=== PATIENT | male | born 1945 | race Caucasian/White ===

== ENCOUNTER 2016-10-21 21:41 | Emergency (ER) | payer MEDICARE ==
--- NOTE | 2016-10-22 01:09 | ED ---
Lower Extremity - HPI Summary HPI Summary: Patient arrives to ED with concern of DVT. He states he has been traveling more frequently lately and yesterday forgot to wear his compression stockings. Pain is located behind the left calf and left knee. He denies trauma or injury. He had a spontaneous PE many years ago and DVT after long driving trip 3 years ago and now is on coumadin. Denies other significant health history. - History of Current Complaint Chief Complaint: EDExtremityLower Stated Complaint: PAIN LT LEG Time Seen by Provider: 10/21/16 23:47 Hx Obtained From: Patient Onset of Pain: Days Severity Initially: Moderate Severity Currently: Moderate Pain Intensity: 5 Pain Scale Used: 0-10 Numeric Timing: Constant Location: Is Discrete @ - left leg calf and posterior knee Associated Signs And Symptoms: Positive: Knee Pain Aggravating Factor(s): Standing, Ambulation Alleviating Factor(s): Rest Able to Bear Weight: Yes - Allergies/Home Medications Allergies/Adverse Reactions: Allergies Allergy/AdvReac Type Severity Reaction Status Date / Time Levofloxacin [From Levaquin] Allergy Intermediate Itching Verified 03/23/16 10: 34 Metronidazole [From Flagyl] Allergy Intermediate Itching Verified 03/23/16 10:34 Sulfa Drugs Allergy Unknown See Comment Verified 03/23/16 10:34 PMH/Surg Hx/FS Hx/Imm Hx Previously Healthy: Yes Endocrine/Hematology History: Reports: Hx Anticoagulant Therapy Denies: Hx Diabetes, Hx Thyroid Disease Cardiovascular History: Reports: Hx Coronary Artery Disease, Hx Deep Vein Thrombosis, Hx Embolism - DVT/PE 1980, SARCOIDOSIS, Hx Pacemaker/ICD - [facility] , HX OF SICK SINUS SYNDROME 1994, Other Cardiovascular Problems/Disorders - HX OF DVT LEFT LEG PROGRESSED TO RIGHT LUNG PE Denies: Hx Congestive Heart Failure, Hx Hypertension Respiratory History: Reports: Hx Pulmonary Embolism - 1980, Hx Sleep Apnea - BIPAP user, compliance issues, Other Respiratory Problems/Disorders - HX OF PE IN 1980 Denies: Hx Asthma, Hx Chronic Obstructive Pulmonary Disease (COPD) GI History: Reports: Hx Gastroesophageal Reflux Disease, Other GI Disorders - hx (right) inguinal hernia History: Reports: Other Problems/Disorders - hx TURP Denies: Hx Renal Disease Musculoskeletal History: Reports: Hx Arthritis - BILATERAL KNEES, THUMB AND SHOULDER, Hx Back Problems, Hx Bursitis, Hx Tendonitis, Other Musculoskeletal History - knee repair Sensory History: Reports: Hx Contacts or Glasses, Hx Glaucoma Denies: Hx Hearing Aid Opthamlomology History: Reports: Hx Contacts or Glasses, Hx Glaucoma Neurological History: Denies: Hx Dementia, Hx Seizures Psychiatric History: Reports: Hx Anxiety - RELATED TO FINANCES AND UNEMPLOYMENT , Hx Depression Denies: Hx Substance Abuse - Surgical History Surgery Procedure, Year, and Place: 1946 ENLARGING OF HOLE AT END OF PENIS, [place], [place]. 8 TONSILLECTOMY, [place], [place]. 1954 BILATERAL INGUINAL HERNIA REPAIR, [place], [place]. 1965 APPENDECTOMY, [facility], (DEVELOPED PERITONITIS). 1980 LAMINECTOMY L4-L5, [facility] (DEVELOPED PULMONARY EMBOLISM). 1992 LEFT KNEE ARTHROSCOPIC MENISCUS SURGERY, [facility]. 1994 RIGHT KNEE ARTHROSCOPIC MENISCUS SURGERY, [facility] ( DEVELOPED AVASCULAR ;NECROSIS). 1994 MOSAICPLASTY RIGHT KNEE, [place], [place]. 1994 PACEMAKER INSERTION, [facility]. 1998 LAMINECTOMY L4-L5, [place], [place]. 2006 PACEMAKER GENERATOR CHANGE, [facility]. 2009 TURP, [facility] [place]. 2013 RIGHT INGUINAL HERNIA REPAIR, [facility] [place]. 2016 ENDOSCOPY AND COLONOSCOPY, [facility] [place]. RIGHT KNEE REPLACEMENT 12/22/15 Hx Anesthesia Reactions: No - Immunization History Date of Tetanus Vaccine: Unk Date of Influenza Vaccine: Fall 2014 Infectious Disease History: No Infectious Disease History: Denies: Hx Hepatitis, Hx Human Immunodeficiency Virus (HIV), Hx of Known/ Suspected MRSA, Hx Tuberculosis, History Other Infectious Disease, Traveled Outside the in Last 30 Days - Family History Known Family History: Positive: Hypertension - Social History Occupation: Retired Lives: With Family Alcohol Use: Occasionally Alcohol Amount: WINE Hx Substance Use: No Substance Use Type: Reports: None Hx Tobacco Use: Yes Smoking Status (MU): Former Smoker Type: Cigarettes Amount Used/How Often: 1 PACK EVERY OTHER DAY OR LESS Length of Time of Smoking/Using Tobacco: 8 YEARS Have You Smoked in the Last Year: No Review of Systems Constitutional: Negative ENT: Negative Cardiovascular: Negative Respiratory: Negative Positive: no symptoms reported, see HPI Positive: Myalgia Skin: Negative Neurological: Negative Psychological: Normal All Other Systems Reviewed And Are Negative: Yes Physical Exam Triage Information Reviewed: Yes Vital Signs On Initial Exam: Initial Vitals Temp Pulse Resp BP Pulse Ox 97.4 F 64 18 154/72 99 03/31/17 21:47 10/21/16 21:47 10/21/16 21:47 10/21/16 21:47 10/21/16 21:47 Completion Of Physical Exam Limited Due To: Dementia Appearance: Positive: Well-Appearing, Well-Nourished Skin: Positive: Warm, Skin Color Reflects Adequate Perfusion Head/Face: Positive: Normal Head/Face Inspection Neck: Positive: Supple, No Lymphadenopathy Respiratory/Lung Sounds: Positive: Clear to Auscultation, Breath Sounds Present Cardiovascular: Positive: Normal, RRR, Pulses are Symmetrical in both Upper and Lower Extremities Musculoskeletal: Positive: Pain @ - left posterior calf Neurological: Positive: Normal, Sensory/Motor Intact, Speech Normal Psychiatric: Positive: Normal AVPU Assessment: Alert - Luca Coma Scale Coma Scale Total: 15 Diagnostics - Vital Signs Vital Signs Temp Pulse Resp BP Pulse Ox 10/21/16 21:47 97.4 F 64 18 154/72 99 - Laboratory Lab Statement: Any lab studies that have been ordered have been reviewed, and results considered in the medical decision making process. Lower Extremity Course/Dx - Course Course Of Treatment: Patient sent to US. Negative for DVT. Patient encouraged to use moist heat behind knee and calf for comfort. Patient agrees to follow up. - Diagnoses Differential Diagnosis/HQI/PQRI: Positive: Cellulitis, Contusion, DVT, Sprain, Strain Provider Diagnoses: Muscle cramp Discharge - Discharge Plan Condition: Stable Disposition: HOME Patient Education Materials: Leg Cramps (ED) Referrals: Denver Murrell MD [Primary Care Provider] - Additional Instructions: Follow up with PCP. Moist heat to the area. If its not too painful, walk to prevent stiffness At rest, elevated it with some moist heat then walk If symptoms become worse or your pain is not well controlled, come back to ED
[2016-10-22 01:26] VITALS: BP 135/90
--- NOTE | 2016-10-22 07:38 | RAD ---
INDICATION: Left calf pain. COMPARISON: There are no prior studies available for comparison. TECHNIQUE: Multiple real-time, color flow and Doppler tracings of the left lower extremity were obtained. FINDINGS: The common femoral, femoral, profunda femoral and popliteal veins all demonstrate normal compressibility, augmentation with compression and phasic response with respiration. The posterior tibial and peroneal veins demonstrate normal compressibility and augmentation with compression. IMPRESSION: NO EVIDENCE FOR DEEP VENOUS THROMBOSIS.
== END 2016-10-22 01:25 | disposition home or self-care (01) ==
LOC: ED 21:41
DX: R25.2 Cramp and spasm (principal); M79.1 Myalgia; Z87.891 Personal history of nicotine dependence
CPT/HCPCS: 99282

== ENCOUNTER 2016-11-19 18:03 | Emergency (ER) | payer MEDICARE ==
[2016-11-19 18:28] VITALS: BP 142/79
--- NOTE | 2016-11-19 19:21 | UC ---
Skin Complaint HPI - HPI Summary HPI Summary: The patient comes in today for: 1. Left groin rash, scrotal itching, inquinal region itching/irritation: Onset: 3-5 days. Palliative/provocative: Taking a shower makes it better. Monistat seemed to help. Quality: Itching ("a fair amount") Region: Left inquinal region. Severity: 09/30 Time: Constant. Associated symptoms: Previous treatment: Monistat Skin lesion: he has a growing ulcer of the left lower anterior leg. * - History of Current Complaint Chief Complaint: UCRash Time Seen by Provider: 11/19/16 19:15 Stated Complaint: RASH Hx Obtained From: Patient - Allergy/Home Medications Allergies/Adverse Reactions: Allergies Allergy/AdvReac Type Severity Reaction Status Date / Time Levofloxacin [From Levaquin] Allergy Intermediate Itching Verified 11/19/16 18: 28 Metronidazole [From Flagyl] Allergy Intermediate Itching Verified 11/19/16 18:28 Sulfa Drugs Allergy Unknown See Comment Verified 11/19/16 18:28 Review of Systems Constitutional: Negative Skin: Rash Eyes: Negative ENT: Negative Respiratory: Negative Cardiovascular: Negative Gastrointestinal: Negative Genitourinary: Negative Psychological: Anxious All Other Systems Reviewed And Are Negative: Yes PMH/Surg Hx/FS Hx/Imm Hx Previously Healthy: No - Sleep apnea, glaucoma. Endocrine History Of: Reports: Dyslipidemia Denies: Diabetes, Thyroid Disease, Hyperthyroidism, Hypothyroidism Cardiovascular History Of: Reports: Cardiac Disorders - pacemaker since 1994. He states that he has a "blockage" in the heart., Pacemaker/ICD - [facility], HX OF SICK SINUS SYNDROME 1994, Deep Vein Thrombosis - [facility] 1980 after back surgery DVT 2012 from prolonged driving. Denies: Hypertension, Congestive Heart Failure Respiratory History Of: Reports: Pulmonary Embolism - 1980 Denies: COPD, Asthma, Bronchitis, Pneumonia GI/ History Of: Reports: Gastroesophageal Reflux Denies: Ulcer, Gastrointestinal Bleed, Gall Bladder Disease, Kidney Stones, Diverticulitis, Renal Disease, Urosepsis Neurological History Of: Denies: TIA, CVA, Dementia, Seizures, Migraine Psychological History Of: Reports: Anxiety - RELATED TO FINANCES AND UNEMPLOYMENT, Depression Denies: Bipolar Disorder, Schizophrenia, Post Traumatic Stress Disorder Cancer History Of: Denies: Lung Cancer, Colorectal Cancer, Breast Cancer, Prostate Cancer, Cervical Cancer Other History Of: Anticoagulant Therapy Negative For: HIV, Hepatitis B, Hepatitis C - Surgical History Surgical History: Yes Surgery Procedure, Year, and Place: 1946 ENLARGING OF HOLE AT END OF PENIS, [facility], [place]. 8 TONSILLECTOMY, [place], [place]. 1954 BILATERAL INGUINAL HERNIA REPAIR, [place], [place]. 1965 APPENDECTOMY, [facility], (DEVELOPED PERITONITIS). 1980 LAMINECTOMY L4-L5, [facility] (DEVELOPED PULMONARY EMBOLISM). 1992 LEFT KNEE ARTHROSCOPIC MENISCUS SURGERY, [facility]. 1994 RIGHT KNEE ARTHROSCOPIC MENISCUS SURGERY, [facility] ( DEVELOPED AVASCULAR ;NECROSIS). 1994 MOSAICPLASTY RIGHT KNEE, [place], [place]. 1994 PACEMAKER INSERTION, [facility]. 1998 LAMINECTOMY L4-L5, [place], [place]. 2006 PACEMAKER GENERATOR CHANGE, [facility]. 2009 [place]URP, [facility] [place] [facility] [place]. 2013 RIGHT INGUINAL HERNIA REPAIR, [facility] [place]. 2015 ENDOSCOPY AND COLONOSCOPY, [facility] [place]. RIGHT KNEE REPLACEMENT 12/22/15 - Family History Known Family History: Positive: Hypertension Negative: Cardiac Disease, Diabetes - Social History Occupation: Employed Full-time Alcohol Use: Occasionally Alcohol Amount: WINE Substance Use Type: None Smoking Status (MU): Former Smoker Type: Cigarettes Amount Used/How Often: 1 PACK EVERY OTHER DAY OR LESS Length of Time of Smoking/Using Tobacco: 8 YEARS Have You Smoked in the Last Year: No - Immunization History Most Recent Influenza Vaccination: 2014 Most Recent Tetanus Shot: LESS THAN 10 YEARS Most Recent Pneumonia Vaccination: NONE Physical Exam Triage Information Reviewed: Yes Appearance: Well-Appearing, No Pain Distress, Well-Nourished Vital Signs: Initial Vital Signs Temp 98.0 F 11/19/16 18:19 Pulse 60 11/19/16 18:19 Resp 20 11/19/16 18:19 BP 142/79 11/19/16 18:19 Pulse Ox 97 11/19/16 18:19 Vital Signs Reviewed: Yes Eyes: Positive: Conjunctiva Clear. Negative: Discharge ENT: Positive: Hearing grossly normal. Negative: Pharyngeal erythema, Nasal congestion, Nasal drainage, TM bulging, TM dull, TM red, Tonsillar swelling, Tonsillar exudate Dental: Negative: Gross Decay/Caries @, Dental Fracture @ Neck: Positive: Supple, Nontender, No Lymphadenopathy. Negative: Nuchal Rigidity Respiratory: Positive: Lungs clear, No respiratory distress, No accessory muscle use. Negative: Crackles, Wheezing Cardiovascular: Positive: RRR, No Murmur Abdomen Description: Positive: Nontender, No Organomegaly, Soft. Negative: Distended, Guarding Musculoskeletal: Positive: Strength Intact, ROM Intact, No Edema Neurological: Positive: Alert, Muscle Tone Normal Psychological: Positive: Age Appropriate Behavior, Consolable Skin: Positive: rashes - He has an erythematous rash of the left upper inner thigh. There is some scale present--but no central clearing. There are a few satellite lesions. His scrotal skin has mild edema. Course/Dx - Differential Diagnoses - Skin Complaint Differential Diagnoses: Eczema, Impetigo, Tinea - Diagnoses Provider Diagnoses: High blood pressure: Tinea cruis Discharge - Discharge Plan Condition: Stable Disposition: HOME Patient Education Materials: Adonis Dunbar (ED) Referrals: Denver Murrell MD [Primary Care Provider] - 1 Week (Please see your primary care provider in a week to see how well you are doing. If you get worse, please be seen sooner in the ER or through us.) Additional Instructions: Apply the desonide ointment as needed for itching. Use the ketoconazole cream twice a day for a solid two weeks. See your primary care provider in a week to see how you are doing with your rash and for your blood pressure.
== END 2016-11-19 19:52 | disposition home or self-care (01) ==
LOC: UCEAST 18:03
DX: B35.6 Tinea cruris (principal); R03.0 Elevated blood-pressure reading, without diagnosis of hypertension; E78.5 Hyperlipidemia, unspecified; Z95.0 Presence of cardiac pacemaker; Z86.711 Personal history of pulmonary embolism; Z79.01 Long term (current) use of anticoagulants; K21.9 Gastro-esophageal reflux disease without esophagitis; F41.9 Anxiety disorder, unspecified; Z96.651 Presence of right artificial knee joint; Z87.891 Personal history of nicotine dependence
CPT/HCPCS: 99212; G0463

== ENCOUNTER 2019-07-18 17:05 | Emergency (ER) | payer MEDICARE ==
--- OUTSIDE RECORDS SUMMARY | 2019-07-18 17:10 | XMS REPORT | Continuity of Care Document ---
:1945 External Reference #:[id number] Author Name Afshan Jade Care Team Providers Name Role Phone Denver Murrell III, MD - Internal Care Team Information Advisor To [employer] In [employer] Medicine Derek Tompkins MD - Gastroenterology Care Team Information Advisor To [employer] In [employer] Huang Renae MD - Hematology Care Team Information Advisor To [employer] In [employer] [phone] Jung Beck MD - Urology Care Team Information Advisor To [employer] In [employer] [phone] [facility] [place] Sleep [facility] - Sleep Disorder Care Team Information Advisor To [employer] In [employer] Diagnostic Problems Active Problems Provider Date Eruption Denver Murrell M.D. Onset: 05/31/2011 Indigestion Denver Murrell M.D. Onset: 06/14/2011 Sarcoidosis Denver Murrell M.D. Onset: 08/15/2011 Mixed hyperlipidemia Denver Murrell M.D. Onset: 08/15/2011 Malaise and fatigue Denver Murrell M.D. Onset: 08/15/2011 Low back pain Denver Murrell M.D. Onset: 10/26/2011 Impaired fasting glycaemia Denver Murrell M.D. Onset: 11/23/2011 Arthralgia of the lower leg Denver Murrell M.D. Onset: 01/02/2012 Anxiety state Denver Murrell M.D. Onset: 09/13/2012 Embolism from thrombosis of vein of Denver Murrell M.D. Onset: 12/03/2012 distal lower extremity Sinus node dysfunction Aditya Park M.D., [facility], Onset: 10/09/2013 [facility] Chest pain Aditya Park M.D., [facility], Onset: 06/25/2014 [facility] Obstructive sleep apnea of adult Pippa Gimenez DNP, RN, Onset: 10/22/2013 [facility] History of thromboembolism of vein Denver Murrell M.D. Onset: 09/09/2015 Gastroesophageal reflux disease Denver Murrell M.D. Onset: 09/09/2015 Benign prostatic hypertrophy without Denver Murrell M.D. 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., [facility], Onset: 2015 [place] coronary artery without angina [facility] pectoris Thoracic aortic ectasia Aditya Park M.D., [facility], Onset: 02/06/2018 [facility] Social History Type Date Description Comments Sex Unknown Cigarette Use Quit 35 Years Ago 2 ppd; began age 17 ETOH Use Occasionally consumes alcohol Tobacco Use Start: Unknown End: Patient is a former Unknown smoker Smoking Status Reviewed: 07/01/19 Patient is a former smoker Exercise Exercises sporadically Type/Frequency Allergies, Adverse Reactions, Alerts Active Allergies Reaction Severity Comments Date Sulfa 2009 Flagyl urticaria, scratchy throat 2009 Levaquin scratchy throat, tingling of 2009 hands, abd. cramps Metoprolol dizzines, headache, fatigue 01/29/2016 Cephalexin hand "tingling" 06/25/2019 Medications Active Medications SIG Qnty Indications Ordering Date Provider Amoxicillin take 4 tabs 1 16caps Z96.651 Christophe Gonzalez M.D. 07/06/2016 500mg hour prior to Capsules dental work Atenolol 1 by mouth every 30tabs Adityagirish Reyes 01/19/2016 25mg Tablets guillermo Park M.D., ELIZABETH, ABBY Aspir-81 1 by mouth every I25.10 Adityagirish Reyes 12/16/[address] guillermo Park M.D., ELIZABETH, ABBY Lipitor 1 by mouth at 90tabs I25.10 Adityagirish Reyes 12/16/2015 40mg Tablets bedtime Jaz Park, ELIZABETH, ABBY Coumadin take 1 and 1/2 120tabs Denver El 11/12/2012 5mg Tablets tablet by mouth Jaz Murrell on 5 days per week and take 2 tablets by mouth on the other 2 days per week.-as directed Acetaminophen 2 po prn 60caps Unknown 500mg Capsules Lansoprazole 1 by mouth daily Unknown 15mg as needed Capsules Hydrocortisone Acetate prn Unknown 1% Cream Mau Zurita, 0.05% Ointment Betaxolol HCL Unknown 0.5% Solution Brimonidine Tartrate Unknown 0.15% Solution Medications Administered in Office Medication SIG Qnty Indications Ordering Provider Date Depomedrol 40MG Bertha Shell M.D. 08/16/2017 Injection Depomedrol 40MG Bertha Shell M.D. 08/16/2017 Injection Depomedrol 40MG Bertha Shell M.D. 08/16/2017 Injection Depomedrol 40MG Bertha Shell M.D. 08/16/2017 Injection Depomedrol 40MG Bertha Shell M.D. 12/05/2016 Injection Depomedrol 40MG Bertha Shell M.D. 12/05/2016 Injection Depomedrol 40MG Bertha Shell M.D. 12/05/2016 Injection Depomedrol 40MG Bertha Shell M.D. 12/05/2016 Injection Inj, Regadenoson, 0.1 MG Aditya Park M.D., 10/17/2016 Injection FACC, FASNC Technetium TC 99M Aditya Park M.D., 10/17/2016 Tetrofosmin, Per Unit Dose FACC, FASNC Up To 40 Millicuries Injection Inj, Regadenoson, 0.1 MG Aditya Park M.D., 12/14/2015 Injection FACC, FASNC Technetium TC 99M Aditya Park M.D., 12/14/2015 Tetrofosmin, Per Unit Dose FACC, FASNC Up To 40 Millicuries Injection Depomedrol 80MG LEATHA Payne 05/22/2015 Injection Inj, Regadenoson, 0.1 MG Hakan Atkins M.D. 06/09/2014 Injection Inj, Regadenoson, 0.1 MG Liss Avalos M.D. 06/09/2014 Injection Technetium TC 99M Hakan Atkins M.D. 06/09/2014 Tetrofosmin, Per Unit Dose Up To 40 Millicuries Injection Technetium TC 99M Ica Nuclear Schedule 06/05/2014 Tetrofosmin, Per Unit Dose Up To 40 Millicuries Injection Depomedrol 80MG Christophe Gonzalez M.D. 02/20/2013 Injection Immunizations CPT Code Status Date Vaccine Reaction Lot # [id number] Given 06/25/2019 Influenza Virus Vaccine, No immediate [id number] Quadrivalent ([id number]), reaction..jh Derived From Cell 01250 Given 05/19/2017 Influenza Virus Vaccine, Pt. tolerated well/No [id number] Quadrivalent, Split, reaction noted. Preservative Free 25882 Given 07/28/2016 Pneumococcal Conjugate [id number] Vaccine 13 Valent For Intramuscular Use 49609 Given 07/12/2016 Influ Virus Vaccine, [id number] Quadrivalent, Split Virus, [place] [address] Given 07/13/2015 Influenza Virus Vaccine, [id number] Quadrivalent, Split, Preservative Free 49831 Given 06/13/2014 Flu Vaccine Split Virus [id number] Preservative Free For Indiv 3Yr Older 19751 Given 05/22/2013 Flu Vaccine Split Virus [id number] Preservative Free For Indiv 3Yr Older Q2037 Given 08/03/2012 Fluvirin Im 3Yrs And Older [id number] 66237 Given 12/06/2011 Pneumonia Vaccine [id number] 99333 Given 12/06/2011 Tdap - [id number] Tetanus/Diptheria/Acellular Pertussis 76345 Given 05/10/2010 Influenza Virus 3Yrs & Over Vital Signs Date Vital Result Comment 07/01/2019 1:27pm Height 71.25 inches 5'11.25" Weight 234.00 lb Heart Rate 66 /min BP Systolic 118 mmHg BP Diastolic 70 mmHg Respiratory Rate 16 /min Body Temperature 97.3 F Pain Level 3 BMI (Body Mass Index) 32.4 kg/m2 06/25/2019 9:24am Height 71 inches 5'11" Weight 237.00 lb Heart Rate 62 /min BP Systolic Sitting 130 mmHg BP Diastolic Sitting 73 mmHg BMI (Body Mass Index) 33.1 kg/m2 Results Test Acquired Date Facility Test Result H/L Range Note Protime W/ Inr 07/02/2019 [facility] [employer] [facility] House Prothrombin Time 25.5 Inr 2.1 Protime W/ Inr 06/25/2019 [employer] In House Prothrombin Time 37.4 Inr 3.1 Procedures Date Code Description Status 06/27/2019 24483 Pace Maker Eval W/Iterative Adjment Dual Lead Completed 06/27/2019 44014 Pace Maker Eval W/Iterative Adjment Dual Lead Completed 08/10/2015 95697943 Colonoscopy Completed 07/05/2010 66318417 Colonoscopy Completed Medical Devices Description No Information Available Encounters Type Date Location Provider Dx Diagnosis Office Visit 06/25/2019 [employer] Internal Denver Murrell, I49.5 Sick sinus 9:00a Medicine - [facility] Jaz syndrome E78.2 Mixed hyperlipidemia N40.0 Benign prostatic hyperplasia without lower urinry tract symp G47.33 Obstructive sleep apnea (adult) (pediatric) Z86.718 Personal history of other venous thrombosis and embolism Z79.01 group home (current) use of anticoagulants Z95.0 Presence of cardiac pacemaker Z23 Encounter for immunization Assessments Date Code Description Provider 07/02/2019 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 left knee 06/27/2019 I49.5 Sick sinus syndrome Ica Pacer Schedule 06/27/2019 Z95.0 Presence of cardiac pacemaker Aditya Park M.D., [facility] 06/27/2019 Z95.0 Presence of cardiac pacemaker Ica Pacer Schedule 06/25/2019 I49.5 Sick sinus syndrome Denver Murrell M.D. 06/25/2019 E78.2 Mixed hyperlipidemia Denver Murrell M.D. 06/25/2019 N40.0 Benign prostatic hyperplasia without Denver Murrell M.D. lower urinary tract symptoms 06/25/2019 G47.33 Obstructive sleep apnea (adult) Denver Murrell M.D. (pediatric) 06/25/2019 Z86.718 Personal history of other venous Denver Murrell M.D. 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 anticoagulants 06/25/2019 Z95.0 Presence of cardiac pacemaker Denver Murrell M.D. 06/25/2019 Z23 Encounter for immunization Denver Murrell M.D. Plan of Treatment Future Appointment(s):09/03/2019 7:30 am - Christophe Gonzalez M.D. at [facility] at [id number]/23/2019 11:00 am - Graciela Dejesus MD at [facility]07/12/2019 10:00 am - Denver Murrell M.D. at [facility] [place] - Christophe Gonzalez M.D.M17.12 Unilateral primary osteoarthritis, left knee Functional Status Description No Information Available Mental Status Description No Information Available Referrals Refer to Dr Reason for Referral Status Appt Date Jung Beck MD Previous pt now back in the area; (+) BPH, past Sent TURP [address] [place] [address] [place] [address] [phone] [facility] [place] [facility] Previous pt, now back in the area. (+) sleep apnea; Sent on CPAP [address] JAMAL [place] [phone]
--- OUTSIDE RECORDS SUMMARY | 2019-07-18 17:10 | XMS REPORT | Continuity of Care Document ---
:1945 External Reference #:[id number] Author Name Denver Murrell M.D. (transmitted by agent of provider Rupali Sheldon) Address [address], [place] [address] Care Team Providers Name Role Phone Denver Murrell III, MD - Internal Care Team Information Marketing Information Manager [phone] Medicine Derek Tompkins MD - Gastroenterology Care Team Information Marketing Information Manager [phone] Huang Renae MD - Hematology Care Team Information Marketing Information Manager Jung Beck MD - Urology Care Team Information Marketing Information Manager [phone] [facility] - Sleep Disorder Care Team Information Marketing Information Manager Diagnostic Ye Joyner MD - Dermatology Care Team Information Marketing Information Manager [phone] Humble Spear MD - Surgery Care Team Information Marketing Information Manager Problems Active Problems Provider Date Eruption Denver [...] extremity Sinus node dysfunction Aditya Park M.D., [facility], Onset: 10/09/2013 [facility] Chest pain Aditya Park M.D., [facility], Onset: 06/25/2014 [facility] Obstructive sleep apnea of adult Pippa ROGER Giemnez, RN, Onset: 10/22/2013 [facility]- History of thromboembolism of vein Denver Murrell M.D. Onset: 09/09/2015 Gastroesophageal reflux disease Denver Murrell M.D. Onset: 09/09/2015 Benign prostatic hypertrophy without Denver Murrell M.D. 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 [facility] pectoris Thoracic aortic ectasia Aditya Park M.D., [facility], Onset: 02/06/2018 [facility] Social History Type Date Description Comments Sex Unknown Cigarette Use Quit 35 Years Ago 2 ppd; began age 17 ETOH Use Occasionally consumes alcohol Tobacco Use Start: Unknown End: Patient is a former Unknown smoker Smoking Status Reviewed: 07/12/19 Patient is a former smoker Exercise Exercises [...] work Atenolol 1 by mouth every 30tabs Aditya Reyes 01/19/2016 25mg Tablets day Jaz Park, ABBY JOHNSON Aspir-81 1 by mouth every I25.10 Aditya Reyes 12/16/[address] guillermo Park M.D., [facility] [place] Lipitor 1 by mouth at 90tabs I25.10 Aditya Reyes 12/16/2015 40mg Tablets bedtime Jaz Park, ABBY JOHNSON Coumadin take 1 and 1/2 120tabs Denver E. 11/12/2012 5mg Tablets tablet by mouth Jaz [...] Depomedrol 40MG Bertha Shell M.D. 08/16/2017 Injection Saulomedrol 40MG Bertha Shell M.D. 12/05/2016 Injection Depomedrol 40MG Bertha Shell M.D. 12/05/2016 Injection Depomedrol 40MG Bertha Shell M.D. 12/05/2016 Injection Depomedrol 40MG Bertha Shell M.D. 12/05/2016 Injection Inj, Regadenoson, 0.1 MG Aditya Park M.D., 10/17/2016 Injection ABBY JOHNSON Technetium TC 99M Aditya Park M.D., 10/17/2016 Tetrofosmin, Per Unit Dose ABBY JOHNSON Up To 40 Millicuries Injection Inj, Regadenoson, 0.1 MG Aditya Park M.D., 12/14/2015 Injection FACC, FASNC Technetium TC 99M Aditya Park M.D., 12/14/2015 Tetrofosmin, Per Unit Dose FACC, FASNC Up To 40 Millicuries Injection Depomedrol 80MG Mindy Mcneil RPA-C 05/22/2015 Injection Inj, Regadenoson, 0.1 MG Hakan [...] Code Status Date Vaccine Reaction Lot # [id number] Given 06/25/2019 Influenza Virus Vaccine, No immediate [id number] Quadrivalent (Cciiv4), reaction..jh Derived From Cell 72461 Given 05/19/2017 Influenza Virus Vaccine, Pt. tolerated well/No [id number] Quadrivalent, Split, reaction noted. Preservative Free 78771 Given 07/28/2016 Pneumococcal Conjugate [id number] Vaccine 13 Valent For Intramuscular Use 49359 Given 07/12/2016 Influ Virus Vaccine, [id number] Quadrivalent, Split Virus, [place] [address] Given 07/13/2015 Influenza Virus Vaccine, [id number] Quadrivalent, Split, Preservative Free 14139 Given 06/13/2014 Flu Vaccine Split Virus [id number] Preservative Free For Indiv 3Yr Older 24430 Given 05/22/2013 Flu Vaccine Split Virus [id number] Preservative Free For Indiv 3Yr Older Q2037 Given 08/03/2012 Fluvirin Im 3Yrs And Older [id number] 32872 Given 12/06/2011 Pneumonia Vaccine [id number] 86634 Given 12/06/2011 Tdap - [id number] Tetanus/Diptheria/Acellular Pertussis 28177 Given 05/10/2010 Influenza Virus 3Yrs & Over Vital Signs Date Vital Result Comment 07/12/2019 10:08am Height 71.25 inches 5'11.25" Weight 233.00 lb Heart Rate 61 /min BP Systolic Sitting 118 mmHg BP Diastolic Sitting 70 mmHg BMI (Body Mass Index) 32.3 kg/m2 07/01/2019 1:27pm Height 71.25 inches 5'11.25" Weight 234.00 lb Heart Rate 66 /min BP Systolic 118 mmHg BP Diastolic 70 mmHg Respiratory Rate 16 /min Body Temperature 97.3 F Pain Level 3 BMI (Body Mass Index) 32.4 kg/m2 Results Test Acquired Date Facility Test Result H/L Range Note Protime W/ Inr 07/12/2019 [facility] Prothrombin Time 19.2 Inr 1.6 Protime W/ Inr 07/02/2019 [facility] Prothrombin Time 25.5 Inr 2.1 Protime W/ Inr 06/25/2019 [facility] Prothrombin Time 37.4 Inr 3.1 Procedures Date Code Description Status 06/27/2019 96193 Pace Maker Eval W/Iterative Adjment Dual Lead Completed 06/27/2019 59937 Pace Maker Eval W/Iterative Adjment Dual Lead Completed 08/10/2015 49808412 Colonoscopy Completed 07/05/2010 [id number] Colonoscopy Completed Medical Devices Description No Information Available Encounters Type Date Location Provider Dx Diagnosis Office Visit 06/25/2019 [facility] Internal Denver Murrell, I49.5 Sick sinus 9:00a Medicine - Ccmob Jaz syndrome E78.2 Mixed hyperlipidemia N40.0 Benign prostatic hyperplasia without lower urinry tract symp G47.33 Obstructive sleep apnea (adult) (pediatric) Z86.718 Personal history of other venous thrombosis and embolism 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 left knee 07/12/2019 Z79.01 intermediate (current) use of Nurse Visit A anticoagulants 07/12/2019 I83.812 Varicose veins of left lower Denver Murrell M.D. extremity with pain 07/12/2019 Z86.718 Personal history of other venous Nurse Visit A thrombosis and embolism 07/12/2019 L98.9 Disorder of the skin and Denver Murrell M.D. subcutaneous tissue, unspecified 07/02/2019 Z79.01 assistant terminal manager (current) use of Nurse Visit A anticoagulants 07/02/2019 Z86.718 Personal history of other venous Nurse Visit A thrombosis and embolism 07/01/2019 M17.12 Unilateral primary osteoarthritis, Christophe Gonzalez M.D. left knee 06/27/2019 I49.5 Sick sinus syndrome Ica Pacer Schedule 06/27/2019 Z95.0 Presence of cardiac pacemaker Aditya Park M.D., [facility], [facility] 06/27/2019 Z95.0 Presence of cardiac pacemaker Ica Pacer Schedule 06/25/2019 I49.5 Sick sinus syndrome Denver Murrell M.D. 06/25/2019 E78.2 Mixed hyperlipidemia Denver Murrell M.D. 06/25/2019 N40.0 Benign prostatic hyperplasia without Denver Murrell M.D. lower urinary tract symptoms 06/25/2019 G47.33 Obstructive sleep apnea (adult) Denver Murrell M.D. (pediatric) 06/25/2019 Z86.718 Personal history of other venous Denver Murrell M.D. thrombosis and embolism 06/25/2019 Z79.01 assistant terminal manager (current) use of Denver Murrell M.D. anticoagulants 06/25/2019 Z95.0 Presence of cardiac pacemaker Denver Murrell M.D. 06/25/2019 Z23 Encounter for immunization Denver Murrell M.D. Plan of Treatment Future Appointment(s):08/21/2019 10:30 am - Christophe Gonzalez M.D. at [facility] at [place]8/16/2019 11:20 am - Denver Murrell M.D. at [facility] Internal Medicine - [facility]09/03/2019 7:30 am - Christophe Gonzalez M.D. at [facility] at [place]08/23/2019 11:00 am - Graciela Dejesus MD at [facility]07/12/2019 - Denver Murrell M.D.M17.12 Unilateral primary osteoarthritis, left kneeComments:L TKA planned in Aug per orthoFollow up:preop eval in Jul as mnjajpntpH13.812 Varicose veins of left lower extremity with painComments:Chronic varicose veins, L>R, with occ L calf aches. Vascular eval requested by pt and referral to Dr Spear enteredReferral:Humble Spear MD, Surgery,QkxylvdD57.9 Disorder of the skin and subcutaneous tissue, unspecifiedComments:Derm eval for a general skin check requested and referral enteredReferral:Ye Joyner MD, Dermatology Functional Status Description No Information Available Mental Status Description No Information Available Referrals Refer to Dr Reason for Referral Status Appt Date Ye Joyner MD General skin check Sent [address] [facility] [address] [phone] Humble Spear MD Chronic varicose veins, worse on the L Created [address] [facility] [place] [address] [phone] Jung Beck MD Previous pt now back in the area; (+) BPH, past Sent TURP [address] [facility] [place] [address] [phone] [facility] Previous pt, now back in the area. (+) sleep apnea; Sent 08/23/[address] [place] [address] [phone]
--- OUTSIDE RECORDS SUMMARY | 2019-07-18 17:10 | XMS REPORT | Continuity of Care Document ---
:1945 External Reference #:[id number] Author Name Christophe Gonzalez M.D. (transmitted by agent of provider Yasmin Son) Address [address] [facility] [facility] [place] [address] Care Team Providers Name Role Phone Denver Murrell III, MD - Internal Care Team Information Bench Assembler Medicine Derek Tompkins MD - Gastroenterology Care Team Information Bench Assembler Huang Renae MD - Hematology Care Team Information Bench Assembler Jung Beck MD - Urology Care Team Information Bench Assembler [phone] [facility] - [place] Care Team Information Bench Assembler Diagnostic Problems Active Problems Provider Date Eruption [...] extremity Sinus node dysfunction Aditya Park M.D., [facility], Onset: 10/09/2013 [facility] Chest pain Aditya Park M.D., [facility], Onset: 06/25/2014 [facility] Obstructive sleep apnea of adult Pippa EncinasROGER laird, RN, Onset: 10/22/2013 [employer]- History of thromboembolism of vein Denver Murrell M.D. Onset: 09/09/2015 Gastroesophageal reflux disease Denver Murrell M.D. Onset: 09/09/2015 Benign prostatic hypertrophy without Denver Murrell M.D. 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 Thoracic aortic ectasia Aditya Park M.D., [facility], Onset: 02/06/2018 [facility] Social History Type Date Description Comments Sex [...] every 30tabs Aditya Reyes 01/19/2016 25mg Tablets guillermo Park M.D., [facility], [facility] Aspir-81 1 by mouth every I25.10 Aditya Reyes 12/16/[address] guillermo Park M.D., [facility], [facility] Lipitor 1 by mouth at 90tabs I25.10 Adityagirish Reyes 12/16/2015 40mg Tablets bedtime Jaz Park, FACC, [facility] Coumadin take 1 and 1/2 120tabs Denver El 11/12/2012 5mg Tablets tablet by mouth Jaz Murrell on 5 days per week and take 2 tablets by mouth on the other 2 days per week.-as directed Acetaminophen 2 po prn 60caps Unknown 500mg Capsules Lansoprazole 1 by mouth daily Unknown 15mg as needed Capsules Hydrocortisone Acetate prn Unknown 1% Cream DesMau Webster, 0.05% Ointment Betaxolol HCL Unknown 0.5% Solution [...] 0.1 MG Aditya Park M.D., 10/17/2016 Injection PASCUALC, FASNC Technetium TC 99M Aditya Park M.D., [...] Code Status Date Vaccine Reaction Lot # 81493 Given 06/25/2019 Influenza Virus Vaccine, No immediate [id number] Quadrivalent (Cciiv4), reaction..jh Derived From Cell 22844 Given 05/19/2017 Influenza Virus Vaccine, Pt. tolerated well/No [id number] Quadrivalent, Split, reaction noted. Preservative Free 88256 Given 07/28/2016 Pneumococcal Conjugate [id number] Vaccine 13 Valent For Intramuscular Use 02316 Given 07/12/2016 Influ Virus Vaccine, [id number] Quadrivalent, Split Virus, [place] [address] Given 07/13/2015 Influenza Virus Vaccine, [id number] Quadrivalent, Split, Preservative Free 83226 Given 06/13/2014 Flu Vaccine Split Virus [id number] Preservative Free For Indiv 3Yr Older 31544 Given 05/22/2013 Flu Vaccine Split Virus [id number] Preservative Free For Indiv 3Yr Older Q2037 Given 08/03/2012 Fluvirin Im 3Yrs And Older [id number] 76202 Given 12/06/2011 Pneumonia Vaccine [id number] 04196 Given 12/06/2011 Tdap - [id number] Tetanus/Diptheria/Acellular Pertussis 03963 Given 05/10/2010 Influenza Virus 3Yrs & Over [...] Result H/L Range Note Protime W/ Inr 06/25/2019 [facility] Prothrombin Time 37.4 Inr 3.1 Procedures Date Code Description Status 06/27/2019 85290 Pace Maker Eval W/Iterative Adjment Dual Lead Completed 06/27/2019 85939 Pace Maker Eval W/Iterative Adjment Dual Lead Completed 08/10/2015 04963777 Colonoscopy Completed 07/05/2010 [id number] Colonoscopy Completed Medical Devices Description No Information Available Encounters Type Date Location Provider Dx Diagnosis Office Visit 06/25/2019 [facility] Internal Denver Murrell, I49.5 Sick sinus 9:00a Medicine - Ccmob Jaz syndrome E78.2 Mixed hyperlipidemia N40.0 Benign prostatic hyperplasia without lower urinry tract symp G47.33 Obstructive sleep apnea (adult) (pediatric) Z86.718 Personal history of other venous thrombosis and embolism Z79.01 retirement (current) use of anticoagulants Z95.0 Presence of cardiac pacemaker Z23 Encounter for immunization Assessments Date Code Description Provider 07/01/2019 M17.12 Unilateral primary osteoarthritis, Christophe Gonzalez M.D. left knee 06/27/2019 I49.5 Sick sinus syndrome Ica Pacer Schedule 06/27/2019 Z95.0 Presence of cardiac pacemaker Aditya Park M.D., [facility], [facility] 06/27/2019 Z95.0 Presence of cardiac pacemaker Ica Pacer Schedule 06/25/2019 I49.5 Sick sinus syndrome Denver Murrell M.D. 06/25/2019 E78.2 Mixed hyperlipidemia Denver Murrell M.D. 06/25/2019 N40.0 Benign prostatic hyperplasia without Denver Murrell M.D. lower urinary tract symptoms 06/25/2019 G47.33 Obstructive sleep apnea (adult) Denver Murrell M.D. (pediatric) 06/25/2019 Z86.718 Personal history of other venous Denver Murrell M.D. thrombosis and embolism 06/25/2019 Z79.01 retirement (current) use of Denver Murrell M.D. anticoagulants 06/25/2019 Z95.0 Presence of cardiac pacemaker Denver Murrell M.D. 06/25/2019 Z23 Encounter for immunization Denver Murrell M.D. Plan of Treatment No Information Available Functional Status Description No Information Available Mental Status Description No Information Available Referrals Refer to Dr Reason for Referral Status Appt Date Jung Beck MD Previous pt now back in the area; (+) BPH, past Sent TURP [address] [place] [address] [phone] [facility] Previous pt, now back in the area. (+) sleep apnea; Sent on CPAP [address] [place] [address] [phone]
--- OUTSIDE RECORDS SUMMARY | 2019-07-18 17:10 | XMS REPORT | Continuity of Care Document ---
:1945 External Reference #:[id number] Author Name Denver Murrell M.D. (transmitted by agent of provider Dimple Jeffries) Address [address], [place] [address] Care Team Providers Name Role Phone Denver Murrell III, MD - Internal Care Team Information Payroll Tax Specialist [phone] Medicine Derek Tompkins MD - Gastroenterology Care Team Information Payroll Tax Specialist [phone] Huang Renae MD - Hematology Care Team Information Payroll Tax Specialist Jung Beck MD - Urology Care Team Information Payroll Tax Specialist [phone] [facility] [place] [facility] Care Team Information Payroll Tax Specialist [phone] Diagnostic Problems Active Problems Provider Date Eruption [...] extremity Sinus node dysfunction Aditya Park M.D., [facility], Onset: 10/09/2013 [facility] Chest pain Aditya Park M.D., [facility], Onset: 06/25/2014 [facility] Obstructive sleep apnea of adult Pippa GimenezROGER, RN, Onset: 10/22/2013 [employer] LOAD [employer]- History of thromboembolism of vein Denver Murrell M.D. Onset: 09/09/2015 Gastroesophageal reflux disease Denver Murrell M.D. Onset: 09/09/2015 Benign prostatic hypertrophy without Denver Murrell M.D. 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 Thoracic aortic ectasia Aditya Park M.D., [facility], Onset: 02/06/2018 [facility] Social History Type Date Description Comments Sex Unknown Cigarette Use Quit 35 Years Ago 2 ppd; began age 17 ETOH Use Occasionally consumes alcohol Tobacco Use Start: Unknown End: Patient is a former Unknown smoker Smoking Status Reviewed: 06/25/19 Patient is a former smoker Exercise Exercises [...] Reyes 01/19/2016 25mg Tablets guillermo Park M.D., [facility], [facility] Aspir-81 1 by mouth every I25.10 Adityagirish Reyes 12/16/[address] guillermo Park M.D., [facility], [facility] Lipitor 1 by mouth at 90tabs I25.10 [...] Bertha Shell M.D. 12/05/2016 Injection Depomedrol 40MG Bertah Shell M.D. 12/05/2016 Injection Inj, Regadenoson, 0.1 [...] 40 Millicuries Injection Depomedrol 80MG Mindy Mcneil RPA-Sergo 05/22/2015 Injection Inj, Regadenoson, 0.1 MG Hakan [...] Code Status Date Vaccine Reaction Lot # 53448 Given 06/25/2019 Influenza Virus Vaccine, No immediate [id number] Quadrivalent (Cciiv4), reaction..jh Derived From Cell 26136 Given 05/19/2017 Influenza Virus Vaccine, Pt. tolerated well/No [id number] Quadrivalent, Split, reaction noted. Preservative Free 63621 Given 07/28/2016 Pneumococcal Conjugate [id number] Vaccine 13 Valent For Intramuscular Use 22192 Given 07/12/2016 Influ Virus Vaccine, [id number] Quadrivalent, Split Virus, [place] [address] Given 07/13/2015 Influenza Virus Vaccine, nj2s9 Quadrivalent, Split, Preservative Free 90310 Given 06/13/2014 Flu Vaccine Split Virus [id number] Preservative Free For Indiv 3Yr Older 47061 Given 05/22/2013 Flu Vaccine Split Virus [id number] Preservative Free For Indiv 3Yr Older Q2037 Given 08/03/2012 Fluvirin Im 3Yrs And Older [id number] 56694 Given 12/06/2011 Pneumonia Vaccine [id number] 77851 Given 12/06/2011 Tdap - [id number] Tetanus/Diptheria/Acellular Pertussis 95342 Given 05/10/2010 Influenza Virus 3Yrs & Over Vital Signs Date Vital Result Comment 06/25/2019 9:24am Height 71 inches 5'11" Weight 237.00 lb Heart Rate 62 /min BP Systolic Sitting 130 mmHg BP Diastolic Sitting 73 mmHg BMI (Body Mass Index) 33.1 kg/m2 02/06/2018 1:36pm Height 71 inches 5'11" Weight 242.00 lb w/ shoes Heart Rate 62 /min BP Systolic Sitting 110 mmHg Rue lg cuff BP Diastolic Sitting 70 mmHg Rue lg cuff BP Systolic Standing 116 mmHg Rue BP Diastolic Standing 74 mmHg Rue Respiratory Rate 16 /min BMI (Body Mass Index) 33.7 kg/m2 Ejection Fraction 55-60% as of 01/29/18 echo Results Test Acquired Date Facility Test Result H/L Range Note Protime W/ Inr 06/25/2019 [facility] In House Prothrombin Time 37.4 Inr 3.1 Procedures Date Code Description Status 08/10/2015 [id number] Colonoscopy Completed 07/05/2010 [id number] Colonoscopy Completed Medical Devices Description No Information Available Encounters Description No Information Available Assessments Date Code Description Provider 06/25/2019 Z86.718 Personal history of other venous thrombosis Denver Murrell M.D. and embolism 06/25/2019 Z23 Encounter for immunization Denver Murrell M.D. 06/25/2019 I49.5 Sick sinus syndrome Denver Murrell M.D. 06/25/2019 E78.2 Mixed hyperlipidemia Denver Murrell M.D. 06/25/2019 G47.33 Obstructive sleep apnea (adult) (pediatric) Denver Murrell M.D. 06/25/2019 N40.0 Benign prostatic hyperplasia without lower Denver Murrell M.D. urinary tract symptoms Plan of Treatment Future Appointment(s):06/27/2019 10:00 am - Ica Pacer Schedule at [facility]06/25/2019 - Denver Murrell M.D.Z86.718 Personal history of other venous thrombosis and embolismComments:No problems with Coumadin Rx.Z23 Encounter for immunizationComments:Flu shot today; discussed the new shingles vaccine. Other shots gmhauuaB82.5 Sick sinus syndromeComments:Pt s/p pacer generator replacement this year. Follows with vdnhghwkwoQ36.2 Mixed hyperlipidemiaComments:On Atorvastatin Rx now; recent labs ok per pt. Outside records logpgegU13.33 Obstructive sleep apnea (adult) (pediatric)Comments:On regular CPAPReferral:[facility], Sleep Disord,Diag/RnxcjaR86.0 Benign prostatic hyperplasia without lower urinary tract symptomsComments:Pt was following with urologyReferral:Jung Beck MD, Urology Functional Status Description No Information Available Mental Status Description No Information Available Referrals Refer to Reason for Referral Status Appt Date Jung Beck MD Previous pt now back in the area; (+) BPH, past Created TURP [address] [place] [address] [phone] [facility] Previous pt, now back in the area. (+) sleep Created apnea; on CPAP [address] [place] [address] [phone]
--- OUTSIDE RECORDS SUMMARY | 2019-07-18 17:10 | XMS REPORT | Continuity of Care Document ---
:1945 External Reference #:[id number] Author Name Yasmin Infante MD (transmitted by agent of provider Imani Urrutia) Address [address] [place] [address] Care Team Providers Name Role Phone Out Of Town PCP Care Team Information [employer] Unavailable Jaci Bautista, [employer] - Family Care Team Information [employer] Problems Description No Information Available Social History Type Date Description Comments Sex Unknown ETOH Use Denies alcohol use Tobacco Use Start: Unknown End: Unknown Patient is a former smoker Recreational Drug Use Denies Drug Use Smoking Status Reviewed: 04/18/19 Patient is a former smoker Allergies, Adverse Reactions, Alerts Active Allergies Reaction Severity Comments Date Metoprolol 12/21/2018 Flagyl 12/21/2018 Levaquin 12/21/2018 Sulfa Antibiotics 12/21/2018 Seasonal 12/21/2018 Cefdinir 01/05/2019 Medications Active Medications SIG Qnty Indications Ordering Date Provider Amoxicillin Take 4 capsules by 16caps J18.9 Marty Fisher, 03/12/2019 500mg mouth 1 hour prior MD Capsules to dental work maximum daily dose is 4 dose Warfarin Sodium alternates 10mg and Unknown 7.5mg Brimonidine Tartrate 1 drop in each eye Unknown twice daily Atenolol 1 every day Unknown 25mg Tablets Aspirin 81 Low Dose 1 by mouth every Unknown day 81mg Chewtabs Betaxolol HCL one drop in each Unknown 0.5% eye twice daily Solution Lipitor 1 by mouth at Unknown 40mg Tablets bedtime Prevacid 1 by mouth every Unknown 15mg day Capsules DR History Medications Zithromax Z-Todd take as directed 1takeara Uribe18.9 Marty Fisher, 03/12/2019 - 03/17/2019 250mg Tablets Cefdinir 2 every day for 7 14caps J18.9 Marty Fisher, 12/21/2018 - 300mg days 12/22/2018 Capsules Symbicort 2 puff twice a day 1units J18.9 Marty Fisher, 12/21/2018 - 12/22/2018 80-4.5mcg/Act Aerosol Proair HFA 1-2 puffs every 1units J18.9 Marty Fisher, 12/21/2018 - 4-6 hours as 03/02/2019 108(90Base) needed mcg/Act Aerosol cough/wheeze Keflex 2 cap by mouth two 28caps J90 Shai Mina, 12/21/2018 - 500mg times a day x 7 [employer] 12/22/2018 Capsules days for Bronchial infection Immunizations Description No Information Available Vital Signs Date Vital Result Comment 04/18/2019 8:18am BP Systolic 129 mmHg BP Diastolic 79 mmHg Body Temperature 96.7 F O2 % BldC Oximetry 99 % Heart Rate 61 /min Respiratory Rate 16 /min Height 71 inches 5'11" Weight 232.00 lb Weight 105.235 kg BMI (Body Mass Index) 32.4 kg/m2 03/27/2019 11:24am BP Systolic 122 mmHg BP Diastolic 78 mmHg O2 % BldC Oximetry 98 % Heart Rate 62 /min Height 71 inches 5'11" Weight 233.00 lb Weight 105.689 kg BMI (Body Mass Index) 32.5 kg/m2 Results Test Acquired Date Facility Test Result H/L Range Note Medicare PNL 04/03/2019 [facility] [id number] Thyroxine (T4) 1.09 ng/dL 0.82-1.77 [facility] [address] [facility], [address], [place] [address] S [phone] TSH 1.810 uIU/mL 0.450-4.500 CMP W/GFR [facility]/03[facility] [id number] Glucose 104 mg/dL High 65-99 [address] [place] [address] [phone] BUN 17 mg/dL 8-27 Creatinine 1.06 mg/dL 0.76-1.27 eGFR If NonAfricn Am 68 mL/min/1.73 >59 eGFR If Africn Am 79 mL/min/1.73 >59 BUN/Creatinine Ratio 16 10-24 Sodium 142 mmol/L 134-144 Potassium 4.2 mmol/L 3.5-5.2 Chloride 105 mmol/L 96-106 Carbon Dioxide, Total 23 mmol/L 20-29 Calcium 9.2 mg/dL 8.6-10.2 Protein, Total 7.0 g/dL 6.0-8.5 Albumin 4.2 g/dL 3.5-4.8 Globulin, Total 2.8 g/dL 1.5-4.5 A/G Ratio 1.5 1.2-2.2 Bilirubin, Total 0.6 mg/dL 0.0-1.2 Alkaline Phosphatase 52 IU/L 39-117 Ast (Sgot) 26 IU/L 0-40 Alt (SGPT) 23 IU/L 0-44 Lipid Panel 04/03/2019 [facility] [id number] Cholesterol, Total 128 mg/dL 100-199 [address] [place] [address] [phone] Triglycerides 116 mg/dL 0-149 HDL Cholesterol 33 mg/dL Low >39 VLDL Cholesterol Pawel 23 mg/dL 5-40 LDL Cholesterol Calc 72 mg/dL 0-99 Comment: TNP PSA Free And [facility]/03/[facility] [id number] Prostate 0.6 ng/mL 0.0-4.0 1 Total Serial [address] [place] [address] Serum [phone] PSA, Free 0.18 ng/mL N/A 2 % Free PSA 30.0 % 3 PDF . CBC/Diff Ambiguous 04/03/2019 [facility] [id number] WBC 5.6 x10E3/ uL 3.4-10.8 Default [address] [place], [place] [id number] [phone] RBC 4.70 x10E6/uL 4.14-5.80 Hemoglobin 14.9 g/dL 13.0-17.7 Hematocrit 42.2 % 37.5-51.0 MCV 90 fL 79-97 MCH 31.7 pg 26.6-33.0 MCHC 35.3 g/dL 31.5-35.7 RDW 14.9 % 12.3-15.4 Platelets 166 x10E3/uL 150-450 Neutrophils 69 % Not Estab. Lymphs 20 % Not Estab. Monocytes 8 % Not Estab. Eos 3 % Not Estab. Basos 0 % Not Estab. Immature Cells TNP Neutrophils (Absolute) 3.9 x10E3/uL 1.4-7.0 Lymphs (Absolute) 1.1 x10E3/uL 0.7-3.1 Monocytes(Absolute) 0.4 x10E3/uL 0.1-0.9 Eos (Absolute) 0.2 x10E3/uL 0.0-0.4 Baso (Absolute) 0.0 x10E3/uL 0.0-0.2 Immature Granulocytes 0 % Not Estab. Immature Grans (Abs) 0.0 x10E3/uL 0.0-0.1 NRBC TNP Hematology Comments: TNP 4 Laboratory test 04/03/2019 [facility] [id number] Raul Reilly See Comment: 5 finding [address] [place] [address] [phone] PDF [id number] SEE IMAGE Order 01/05/2019 Office Orders Wheat Honey 1 [place] <pending> (536)- - Order 12/21/2018 Office Orders Xray DVD <pending> (416)- - Order 12/21/2018 Office Orders PFT Without Bronchodilator <pending> (294)- - 1 Jovany ECLIA methodology. According to the [employer] [employer], Serum PSA should decrease and remain at undetectable levels after radical prostatectomy. The AUA defines biochemical recurrence as an initial PSA value 0.2 ng/mL or greater followed by a subsequent confirmatory PSA value 0.2 ng/mL or greater. Values obtained with different assay methods or kits cannot be used interchangeably. Results cannot be interpreted as absolute evidence of the presence or absence of malignant disease. 2 Jovany ECLIA methodology. 3 The table below lists the probability of prostate cancer for men with non-suspicious NAN results and total PSA between 4 and 10 ng/mL, by patient age (Flaquito et al, YOSVANY 1998, 279:1542). % Free PSA 50-64 yr 65-75 yr 0.00-10.00% 56% 55% 10.01-15.00% 24% 35% 15.01-20.00% 17% 23% 20.01-25.00% 10% 20% >25.00% 5% 9% Please note: Flaquito et al did not make specific recommendations regarding the use of percent free PSA for any other population of men. 4 A hand-written panel/profile was received from your office. In accordance with the [facility] Ambiguous Test Code Policy dated January 2003, we have assigned CBC with Differential/Platelet, Test Code #561355 to this request. If this is not the testing you wished to receive on this specimen, please contact the [facility] Client Inquiry/ Technical Services Department to clarify the test order. We appreciate your business. 5 A hand-written panel/profile was received from your office. In accordance with the [facility] Ambiguous Test Code Policy dated January 2003, we have completed your order by using the closest currently or formerly recognized AMA panel. We have assigned Lipid Panel, Test Code #396218 to this request. If this is not the testing you wished to receive on this specimen, please contact the [facility] Client Inquiry/Technical Services Department to clarify the test order. We appreciate your business. Procedures Date Code Description Status 01/05/2019 64329 Radiologic Exam, Chest, 2 Views Completed 12/21/2018 08761 Spirometry Completed 12/21/2018 30773 Radiologic Exam, Chest, 2 Views Completed Medical Devices Description No Information Available Encounters Type Date Location Provider Dx Diagnosis Office Visit 04/18/2019 [facility] Yasmin Infante MD E78.5 Hyperlipidemia, 8:15a Practice unspecified J18.9 Pneumonia, unspecified organism E55.9 Vitamin D deficiency, unspecified Office Visit 03/12/2019 12:15p [facility] Angela White J18.9 Pneumonia, Medical, pc PA-C unspecified organism Office Visit 01/05/2019 11:00a [facility] Marty R05 Cough Medical, rox Fisher MD Office Visit 12/21/2018 9:00a [facility] Marty J18.9 Pneumonia, Medical, rox Fisher MD unspecified organism J90 Pleural effusion, not elsewhere classified R06.2 Wheezing Assessments Date Code Description Provider 04/18/2019 E78.5 Hyperlipidemia, unspecified Yasmin Infante MD 04/18/2019 J18.9 Pneumonia, unspecified organism Yasmin Infante MD 04/18/2019 E55.9 Vitamin D deficiency, unspecified Yamsin Infante MD 03/27/2019 Z00.00 Encounter for general adult medical Jaci GBettie Bautista, [facility] examination without abnormal findings 03/27/2019 I10 Essential (primary) hypertension Jaci Gwendolyn Bautista, [facility] 03/27/2019 E78.5 Hyperlipidemia, unspecified Jaci Bautista, [facility] 03/12/2019 J18.9 Pneumonia, unspecified organism Angela White PA-C 01/05/2019 R05 Cough Marty Fisher MD 12/21/2018 J18.9 Pneumonia, unspecified organism Marty Fisher MD 12/21/2018 J90 Pleural effusion, not elsewhere classified Marty Fisher MD 12/21/2018 R06.2 Wheezing Marty Fisher MD Plan of Treatment 04/18/2019 - Yasmin Infante MDE78.5 Hyperlipidemia, lwyhewjaecgR93.9 Pneumonia, unspecified cpmqkjesG08.9 Vitamin D deficiency, unspecifiedAllComments: Functional Status Functional Condition Comment Date Status Bipap Machine Active Mental Status Description No Information Available Referrals Refer to Reason for Referral Status Appt Date Claudia Pugh Psyd Created [address] [place] [address] [phone] [facility] Created [place], [place] Rsohan Manzanares MD Created [facility] [place] [id number] [phone]
[2019-07-18 17:45] VITALS: BP 148/90
--- NOTE | 2019-07-18 17:46 | UC ---
Respiratory Complaint HPI - HPI Summary HPI Summary: Pt presents to stating he's had a cough intermittently for the last 4-5 days. Patient states initially his sputum was yellow. Patient states now the sputum is clear. Patient states he is coughing is intermittent but he has these paroxysms that make him feel short of breath. Patient states the cough sometimes wakes him up at night. Patient denies any shortness of breath. No chest pain. No nausea vomiting. No fever, chills, rash. Patient states he's had pneumonia twice in the last 18 months and wanted to make sure he does not have pneumonia now. Patient to get the flu vaccine. No sick contacts. Patient has not taken any sssp-fig-uusucby cough medication. Patient is not on any diuretics. Patient denies any leg edema. Patient is on Coumadin for remote history of PE. Patient's medications is entered in the EMR by triage was reviewed. - History of Current Complaint Chief Complaint: UCRespiratory Stated Complaint: COUGHING Time Seen by Provider: 07/18/19 17:45 Hx Obtained From: Patient Severity Initially: Mild Pain Intensity: 0 Pain Scale Used: 0-10 Numeric - Allergies/Home Medications Allergies/Adverse Reactions: Allergies Allergy/AdvReac Type Severity Reaction Status Date / Time cephalexin Allergy Tingling Verified 07/18/19 18:03 levofloxacin Allergy Itching Verified 07/18/19 18:03 metronidazole Allergy Itching Verified 07/18/19 18:03 Sulfa (Sulfonamide Allergy Unknown Verified 07/18/19 18:03 Antibiotics) Reaction Details CEDRAFIN Allergy Tingling Uncoded 07/18/19 18:03 Home Medications: Home Medications Betaxolol 0.5 %* [Betoptic 0.05%*] 1 drop BOTH EYES BID 07/18/19 [History Confirmed 07/18/19] PMH/Surg Hx/FS Hx/Imm Hx - Additional Past Medical History Additional PMH: PE s/p back surgery Previously Healthy: Yes Endocrine History: Dyslipidemia Cardiovascular History: Pacemaker/ICD Other History Of: Anticoagulant Therapy Negative For: HIV, Hepatitis B, Hepatitis C - Surgical History Surgical History: Yes Surgery Procedure, Year, and Place: 1946 ENLARGING OF HOLE AT END OF PENIS, [place], [place]. 1947 TONSILLECTOMY, [place], [place]. 1954 BILATERAL INGUINAL HERNIA REPAIR, [place], [place]. 1965 APPENDECTOMY, [facility], (DEVELOPED PERITONITIS). 1980 LAMINECTOMY L4-L5, [facility] (DEVELOPED PULMONARY EMBOLISM). 1992 LEFT KNEE ARTHROSCOPIC MENISCUS SURGERY, [facility]. 1994 RIGHT KNEE ARTHROSCOPIC MENISCUS SURGERY, [facility] ( DEVELOPED AVASCULAR ;NECROSIS). 1994 MOSAICPLASTY RIGHT KNEE, [place], [place]. 1994 PACEMAKER INSERTION, [facility]. 1998 LAMINECTOMY L4-L5, [place], [place]. 2006 PACEMAKER GENERATOR CHANGE, [facility]. 2009 [place]P, [facility]. 2013 RIGHT INGUINAL HERNIA REPAIR, [facility]. 2015 ENDOSCOPY AND COLONOSCOPY, [facility]. RIGHT KNEE REPLACEMENT 12/22/15. 2019 PACEMAKER REPLACEMENT - Family History Known Family History: Positive: Hypertension Negative: Cardiac Disease, Diabetes - Social History Occupation: Employed Part-time Alcohol Use: Occasionally Alcohol Amount: WINE Substance Use Type: None Smoking Status (MU): Former Smoker Type: Cigarettes Amount Used/How Often: 1 PACK EVERY OTHER DAY OR LESS Length of Time of Smoking/Using Tobacco: 8 YEARS Have You Smoked in the Last Year: No - Immunization History Most Recent Influenza Vaccination: 2014 Most Recent Tetanus Shot: LESS THAN 10 YEARS Most Recent Pneumonia Vaccination: NONE Review of Systems All Other Systems Reviewed And Are Negative: Yes Constitutional: Positive: Negative Skin: Positive: Negative Eyes: Positive: Negative ENT: Positive: Other - PND Respiratory: Positive: Cough Cardiovascular: Positive: Negative Gastrointestinal: Positive: Negative Physical Exam - Summary Physical Exam Summary: Vital Signs Reviewed: Yes A+Ox3, no distress Eyes: Conjunctiva Clear, IZABELLA. EOM intact and full ENT: Hearing grossly normal TM x 2 clear, turbinates boggy, + PND, mmoist, uvula midline, no exudate, no erythema Neck: Positive: Supple Respiratory: Positive: No respiratory distress, No accessory muscle use + BS throughout, few scattered end exp wheeze, no rhonci, no rales Cardiovascular: RRR nl s1, s2 no m/r CBT <2 sec abd soft + BS nt/nd no guarding, no distension Musculoskeletal Exam: MENDIOLA x 4 without difficulty Strength Intact, ROM Intact Neurological: Positive: Alert, + sensation throughout Psychological: Positive: Normal Response To genetics nurse Skin: Positive: no rash, no ecchymosis Triage Information Reviewed: Yes Vital Signs: Initial Vital Signs Temp 98.5 F 07/18/19 17:43 Pulse 73 07/18/19 17:43 Resp 18 07/18/19 17:43 BP 148/90 07/18/19 17:43 Pulse Ox 95 07/18/19 17:43 Diagnostics - Radiology No standard instances Radiology Interpretation Completed By: ED Physician - no acute infiltrate compared to 2017 - ?mild pulm edema small pleural effusion Respiratory Course/Dx - Course Course Of Treatment: Patient presents to urgent care with cough and intermittent 5 days. Patient states his sputum was yellow is now improved clear. Patient states the coughing sometimes takes his breath away. Otherwise no shortness of breath. No fevers or chills. No edema. Patient does use CPAP at night for which he does humidify exam vital signs are stable. Patient does have an intermittent cough. Patient with slight end expiratory wheezing. No rales or rhonchi. People patient speaking in complete sentences. Review chest x-ray by my read. Compared to 2017. Patient does appear to have some mild pulmonary edema with fluid in the right lower lung. No change since 2017. No pneumonia. Discussed with patient and . We'll start albuterol MDI. Recommend patient take Robitussin comparable. Coumadin. Patient declined Flonase or prednisone at this time. We'll make sure his CPAP and pedal pulse PCP. Return precautions discussed. Patient aware that this is a preliminary chest x-ray report with final report pending BP elevated - h/o same - f/u with PCP - Differential Dx/Diagnosis Provider Diagnosis: Cough Discharge ED - Sign-Out/Discharge Documenting (check all that apply): Patient Departure All imaging exams completed and their final reports reviewed: No - Discharge Plan Condition: Stable Disposition: HOME Prescriptions: Albuterol HFA INHALER* [Ventolin HFA Inhaler*] 2 puff INH Q4H PRN #1 mdi PRN Reason: wheeze Inhaler, Assist Devices [Aerochamber Mv] 1 each PO Q4HR #1 spacer Patient Education Materials: Acute Cough (ED) Referrals: Denver Murrell MD [Primary Care Provider] - Additional Instructions: - Stay well hydrated. Drink plenty of non-alcoholic, non-caffinated beverages - Use the inhaler, 2 puffs every 4 hours the next 2 days, then every 4 hours as needed - Okay to take over the counter cough medication such as Robitussin - humidify the air in your home and your CPAP - Contact your primary doctor to schedule a follow-up appointment. If your symptoms worsen - increase cough, shortness of breath, pain, fevers or any other concerns it is recommended you go to the emergency department for further evaluation and treatment As discussed, your radiograph was reviewed by the provider that treated you tonight. It will be read by a radiologist tomorrow morning. If there is a finding other than that discussed with you today, you will receive a call from a care provider. - Billing Disposition and Condition Condition: STABLE Disposition: Home
--- NOTE | 2019-07-19 11:24 | UC ---
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 IN ADDITION THERE IS A CHRONIC INFILTRATE AT THE RIGHT LUNG BASE WHICH IS UNCHANGED. NO EVIDENCE FOR ACUTE FINDING. Wet read agreeable Course/Dx - Diagnoses Provider Diagnoses: Cough Discharge ED - Sign-Out/Discharge Documenting (check all that apply): Post-Discharge Follow Up All imaging exams completed and their final reports reviewed: Yes - Discharge Plan Condition: Stable Disposition: HOME Prescriptions: Albuterol HFA INHALER* [Ventolin HFA Inhaler*] 2 puff INH Q4H PRN #1 mdi PRN Reason: wheeze Inhaler, Assist Devices [Aerochamber Mv] 1 each PO Q4HR #1 spacer Patient Education Materials: Acute Cough (ED) Referrals: Denver Murrell MD [Primary Care Provider] - Additional Instructions: - Stay well hydrated. Drink plenty of non-alcoholic, non-caffinated beverages - Use the inhaler, 2 puffs every 4 hours the next 2 days, then every 4 hours as needed - Okay to take over the counter cough medication such as Robitussin - humidify the air in your home and your CPAP - Contact your primary doctor to schedule a follow-up appointment. If your symptoms worsen - increase cough, shortness of breath, pain, fevers or any other concerns it is recommended you go to the emergency department for further evaluation and treatment As discussed, your radiograph was reviewed by the provider that treated you tonight. It will be read by a radiologist tomorrow morning. If there is a finding other than that discussed with you today, you will receive a call from a care provider. - Billing Disposition and Condition Condition: STABLE Disposition: Home
== END 2019-07-18 18:53 | disposition home or self-care (01) ==
LOC: UCEAST 17:05
DX: R05 Cough (principal); R09.82 Postnasal drip; R03.0 Elevated blood-pressure reading, without diagnosis of hypertension; Z88.1 Allergy status to other antibiotic agents; Z88.2 Allergy status to sulfonamides; Z95.0 Presence of cardiac pacemaker; Z87.891 Personal history of nicotine dependence
CPT/HCPCS: 71046; 99212; G0463

== ENCOUNTER 2019-09-03 05:38 | Inpatient (IN) | payer MEDICARE ==
[~2019-09-03 05:38] MED LIST: Buffered Lidocaine 1% SYRIN* 1 ML/SYRINGE INTRADERM ONE
--- OUTSIDE RECORDS SUMMARY | 2019-09-03 05:41 | XMS REPORT | Continuity of Care Document ---
:1945 External Reference #:[id number] Author Name Denver Murrell M.D. (transmitted by agent of provider Radha Scruggs) Address [address], [address] [place] [id number] Care Team Providers Name Role Phone Denver Murrell III, MD - Internal Care Team Information Pump Erector Helper [phone] Medicine Derek Tompkins MD - Gastroenterology Care Team Information Pump Erector Helper Huang Renae MD - Hematology Care Team Information Pump Erector Helper Jung Beck MD - Urology Care Team Information Pump Erector Helper [phone] [facility] - Sleep Disorder Care Team Information Pump Erector Helper [phone] Diagnostic Ye Joyner MD - Dermatology Care Team Information Pump Erector Helper Humble Spear MD - Surgery Care Team Information Pump Erector Helper [phone] Problems Active Problems Provider Date Eruption Denver [...] extremity Sinus node dysfunction Aditya Park M.D., [facility], Onset: 10/09/2013 [facility] Chest pain Aditya Park M.D., [facility], Onset: 06/25/2014 [facility] Obstructive sleep apnea of adult Pippa Gimenez DNP, RN, Onset: 10/22/2013 [facility]- History of thromboembolism of vein Denver Murrell M.D. Onset: 09/09/2015 Gastroesophageal reflux disease Denver Murrell M.D. Onset: 09/09/2015 Benign prostatic hypertrophy without Denver Murrell M.D. 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 Thoracic aortic ectasia Aditya Park M.D., [facility], Onset: 02/06/2018 [facility] Social History Type Date Description Comments Sex Unknown Cigarette Use Quit 35 Years Ago 2 ppd; began age 17 ETOH Use Occasionally consumes alcohol Tobacco Use Start: Unknown End: Patient is a former Unknown smoker Smoking Status Reviewed: 08/16/19 Patient is a former smoker Exercise Exercises sporadically Type/Frequency Allergies, Adverse Reactions, Alerts Active Allergies Reaction Severity Comments Date Sulfa 2009 Flagyl urticaria, scratchy throat 2009 Levaquin scratchy throat, tingling of 2009 hands, abd. cramps Metoprolol dizzines, headache, fatigue 01/29/2016 Cephalexin hand "tingling" 06/25/2019 Medications Active Medications SIG Qnty Indications Ordering Date Provider Atenolol take one tablet 90tabs Aditya Reyes 08/02/2019 25mg Tablets per day Jaz Park, [facility], [facility] Amoxicillin take 4 tabs 1 16caps Z96.651 Christophe Gonzalez M.D. 07/06/2016 500mg hour prior to Capsules dental work Aspir-81 1 by mouth every I25.10 Aditya [...] Capsules Hydrocortisone Acetate prn Unknown 1% Cream Desonide as needed Mau Patel, 0.05% Ointment Betaxolol HCL 1 gtt OU ( Both Unknown 0.5% eyes) twice Solution daily Brimonidine Tartrate 1 gtt OU ( both Unknown eyes) twice 0.15% Solution daily Lamisil AT [employer] Unknown Foot 1% Cream Medications Administered in Office Medication SIG Qnty Indications Ordering Provider Date Depomedrol 40MG Bertha Armas M.D. 08/16/2017 Injection Saulomedrol 40MG Bertha Armas M.D. 08/16/2017 Injection Kanwalrol 40MG Bertha Armas M.D. 08/16/2017 Injection Depomedrol 40MG Bertha Armas M.D. 08/16/2017 Injection Saulomedrol 40MG Bertha Armas M.D. 12/05/2016 Injection Saulomedrol 40MG Bertha Armas M.D. 12/05/2016 Injection Saulomedrol 40MG Bertha Armas M.D. 12/05/2016 Injection Saulomedrol KEITH Armas M.D. 12/05/2016 Injection Inj, Regadenoson, 0.1 MG [...] Code Status Date Vaccine Reaction Lot # [id number] Given 06/25/2019 Influenza Virus Vaccine, No immediate [id number] Quadrivalent ([id number]), reaction..jh Derived From Cell 43776 Given 05/19/2017 Influenza Virus Vaccine, Pt. tolerated well/No [id number] Quadrivalent, Split, reaction noted. Preservative Free 82561 Given 07/28/2016 Pneumococcal Conjugate [id number] Vaccine 13 Valent For Intramuscular Use 06561 Given 07/12/2016 Influ Virus Vaccine, [id number] Quadrivalent, Split Virus, [place] [address] Given 07/13/2015 Influenza Virus Vaccine, [id number] Quadrivalent, Split, Preservative Free 13982 Given 06/13/2014 Flu Vaccine Split Virus [id number] Preservative Free For Indiv 3Yr Older 75277 Given 05/22/2013 Flu Vaccine Split Virus [id number] Preservative Free For Indiv 3Yr Older Q2037 Given 08/03/2012 Fluvirin Im 3Yrs And Older [id number] 75503 Given 12/06/2011 Pneumonia Vaccine [id number] 19766 Given 12/06/2011 Tdap - [id number] Tetanus/Diptheria/Acellular Pertussis 41478 Given 05/10/2010 Influenza Virus 3Yrs & Over Vital Signs Date Vital Result Comment 08/16/2019 11:52am Height 71.25 inches 5'11.25" Weight 230.38 lb Heart Rate 60 /min BP Systolic 114 mmHg BP Diastolic 71 mmHg Body Temperature 97.7 F O2 % BldC Oximetry 96 % BMI (Body Mass Index) 31.9 kg/m2 08/09/2019 10:44am Height 71.25 inches 5'11.25" Weight 228.00 lb Heart Rate 60 /min BP Systolic Sitting 120 mmHg Ra< reg BP Diastolic Sitting 68 mmHg Ra< reg BP Systolic Standing 128 mmHg Ra, reg BP Diastolic Standing 68 mmHg Ra, reg BMI (Body Mass Index) 31.6 kg/m2 Ejection Fraction >55% 03/21/19 echo Results Test Acquired Date Facility Test Result H/L Range Note Protime W/ Inr 08/15/2019 [employer] In House Prothrombin Time 32.9 Inr 2.7 Protime W/ Inr 08/01/2019 [employer] In House Prothrombin Time 24.8 Inr 2.1 Protime W/ Inr 07/22/2019 [employer] In House Prothrombin Time 19.7 Inr 1.6 Protime W/ Inr 07/12/2019 [employer] In House Prothrombin Time 19.2 Inr 1.6 Protime W/ Inr 07/02/2019 [employer] In House Prothrombin Time 25.5 Inr 2.1 Protime W/ Inr 06/25/2019 [employer] In House Prothrombin Time 37.4 Inr 3.1 Procedures Date Code Description Status 08/09/2019 83704 EKG Tracing & Interpretation Completed 07/26/2019 44777 Pace Maker Eval W/Iterative Adjment Dual Lead Completed 07/26/2019 59224 Pace Maker Eval W/Iterative Adjment Dual Lead Completed 06/27/2019 09029 Pace Maker Eval W/Iterative Adjment Dual Lead Completed 06/27/2019 96203 Pace Maker Eval W/Iterative Adjment Dual Lead Completed 08/10/2015 44028565 Colonoscopy Completed 07/05/2010 [id number] Colonoscopy Completed Medical Devices Description No Information Available Encounters Type Date Location Provider Dx Diagnosis Office Visit 08/09/2019 [facility] Aditya Reyes Z01.810 Encounter for 10:45a Of Candice Park M.D., preprocedural [facility] cardiovascular examination M17.12 Unilateral primary osteoarthritis, left knee I77.810 Thoracic aortic ectasia I25.10 Athscl heart disease of [place] coronary artery w/o ang pctrs I45.10 Unspecified right bundle-branch block 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 10:00a [facility] Internal Denver El M17.12 Unilateral primary Krupa Murrell M.D. osteoarthritis, [facility] left knee I83.812 Varicose veins of left lower extremity with pain L98.9 Disorder of the skin and subcutaneous tissue, unspecified Office Visit 07/01/2019 Lita Gonzalez, M17.12 Unilateral primary 1:30p [facility] osteoarthritis, left [place] knee Office Visit 06/25/2019 [facility] Willian El I49.5 Sick sinus syndrome 9:00a Krupa Murrell M.D. E78.2 Mixed hyperlipidemia N40.0 Benign prostatic hyperplasia without lower urinry tract symp G47.33 Obstructive sleep apnea (adult) (pediatric) Z86.718 Personal history of other venous thrombosis and embolism Z79.01 [facility] (current) use of anticoagulants Z95.0 Presence of cardiac pacemaker Z23 Encounter for immunization Assessments Date Code Description Provider 08/16/2019 Z01.810 Encounter for preprocedural Denver Murrell M.D. cardiovascular examination 08/16/2019 M17.12 Unilateral primary osteoarthritisDenver M.D. 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 08/16/2019 Z86.718 Personal history of other venous Denver Murrell M.D. thrombosis and embolism 08/16/2019 E78.2 Mixed hyperlipidemia Denver Murrell M.D. 08/16/2019 N40.0 Benign prostatic hyperplasia without Denver Murrell M.D. lower urinary tract symptoms 08/16/2019 G47.33 Obstructive sleep apnea (adult) Denver Murrell M.D. (pediatric) 08/16/2019 K21.9 Gastro-esophageal reflux disease Denver Murrell M.D. 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 extremity with pain 07/12/2019 Z86.718 Personal history of other venous Nurse Visit A thrombosis and embolism 07/12/2019 L98.9 Disorder of the skin and subcutaneous Denver Murrell M.D. tissue, unspecified 07/02/2019 Z79.01 [facility] (current) use of Nurse Visit A anticoagulants 07/02/2019 Z86.718 Personal history of other venous Nurse Visit A thrombosis and embolism 07/01/2019 M17.12 Unilateral primary osteoarthritis, Christophe Gonzalez M.D. left knee 06/27/2019 I49.5 Sick sinus syndrome Ica Pacer Schedule 06/27/2019 Z95.0 Presence of cardiac pacemaker Aditya Park M.D., [facility], [facility] 06/27/2019 Z95.0 Presence of cardiac pacemaker Ica Pacer Schedule 06/25/2019 I49.5 Sick sinus syndrome Denver Murrell M.D. 06/25/2019 E78.2 Mixed hyperlipidemia Denver Murrell M.D. 06/25/2019 N40.0 Benign prostatic hyperplasia without Denver Murrell M.D. lower urinary tract symptoms 06/25/2019 G47.33 Obstructive sleep apnea (adult) Denver Murrell M.D. (pediatric) 06/25/2019 Z86.718 Personal history of other venous Denver Murrell M.D. 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 anticoagulants 06/25/2019 Z95.0 Presence of cardiac pacemaker Denver Murrell M.D. 06/25/2019 Z23 Encounter for immunization Denver Murrell M.D. Plan of Treatment Future Appointment(s):10/08/2019 2:00 pm - Keanu Dalton MD at [facility] Ziehuufojas44/29/2020 10:30 am - Christophe Gonzalez M.D. at [facility] at [id number]/03/2019 7:30 am - Christophe Gonzalez M.D. at [facility] at [id number] 11:00 am - Graciela Dejesus MD at [facility] - [place] Murrell M.D.Z01.810 Encounter for preprocedural cardiovascular avhwisfjtgoM58.12 Unilateral primary osteoarthritis, left kneeI25.10 Atherosclerotic heart disease of [place] coronary artery without angina fxopealmR12.5 Sick sinus enpirxydA47.718 Personal history of other venous thrombosis and bpcnygguX95.2 Mixed vlgsccolxstgizV01.0 Benign prostatic hyperplasia without lower urinary tract nhjgoabfJ02.33 Obstructive sleep apnea ( adult) (pediatric)K21.9 Gastro-esophageal reflux disease without esophagitis Functional Status Description No Information Available Mental Status Description No Information Available Referrals Refer to Dr Reason for Referral Status Appt Date Stephanie Hanley MD General skin check Sent 10/08/2019 [address], [place] [id number] [phone] Humble Spear MD Chronic varicose veins, worse on the L Sent [address] [facility] [place] [address] [phone] Jung Beck MD Previous pt now back in the area; (+) BPH, past Sent [facility] [address] [place] [address] [place] [address] [phone] [facility] Previous pt, now back in the area. (+) sleep apnea; Sent 08/23/2019 on CPAP [address] [place] [address] [phone]
--- OUTSIDE RECORDS SUMMARY | 2019-09-03 05:41 | XMS REPORT | Continuity of Care Document ---
:1945 External Reference #:[id number] Author Name Sulema Eng Care Team Providers Name Role Phone Denver Murrell III, MD - Internal Care Team Information Animal Cytologist [phone] Medicine Derek Tompkins MD - Gastroenterology Care Team Information Animal Cytologist Huang Renae MD - Hematology Care Team Information Animal Cytologist Jung Beck MD - Urology Care Team Information Animal Cytologist [phone] [facility] - [facility] Care Team Information Animal Cytologist [phone] Diagnostic Ye Joyner MD - Dermatology Care Team Information Animal Cytologist Humble Spear MD - Surgery Care Team Information Animal Cytologist Problems Active Problems Provider Date Eruption Denver [...] extremity Sinus node dysfunction Aditya Park M.D., [facility], Onset: 10/09/2013 [facility] Chest pain Aditya Park M.D., [facility], Onset: 06/25/2014 [facility] Obstructive sleep apnea of adult Pippa ROGER Gimenez, RN, Onset: 10/22/2013 [facility] History of thromboembolism of vein Denver Murrell M.D. Onset: 09/09/2015 Gastroesophageal reflux disease Denver Murrell M.D. Onset: 09/09/2015 Benign prostatic hypertrophy without Denver Murrell M.D. 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, Onset: 02/06/2018 [facility] Social History Type Date Description Comments Sex Unknown Cigarette Use Quit 35 Years Ago 1 ppd; began age 17 ETOH Use Occasionally consumes alcohol Tobacco Use Start: Unknown End: Patient is a former Unknown smoker Recreational Drug Use Denies Drug Use Smoking Status Reviewed: 08/23/19 Patient is a former smoker Exercise Type/Frequency Exercises sporadically Allergies, Adverse Reactions, Alerts Active Allergies Reaction Severity Comments Date Sulfa 2009 Flagyl urticaria, scratchy throat 2009 Levaquin scratchy throat, tingling of 2009 hands, abd. cramps Metoprolol dizzines, headache, fatigue 01/29/2016 Cephalexin hand "tingling" 06/25/2019 Cefdinir 08/23/2019 Medications Active Medications SIG Qnty Indications Ordering Date Provider Atenolol take one tablet 90tabs Aditya Reyes 08/02/2019 25mg Tablets per day Jaz Park, [facility], [facility] Amoxicillin take 4 tabs 1 16caps Z96.651 Christophe Gonzalez M.D. 07/06/2016 500mg hour prior to Capsules dental work Aspir-81 1 by mouth every I25.10 Aditya Reyes 12/16/[address] guillermo Park M.D., [facility] Lipitor 1 by mouth at 30tabs I25.10 Aditya Reyes 12/16/2015 40mg Tablets bedtime [...] Unknown 1% Cream Desonide as needed Mau Patel 0.05% Ointment Betaxolol HCL 1 gtt OU ( Both Unknown 0.5% eyes) twice Solution daily Brimonidine Tartrate 1 gtt OU ( both Unknown eyes) twice 0.15% Solution daily Lamisil AT Athlet[employer] Unknown Foot 1% Cream Medications Administered in Office Medication SIG Qnty Indications Ordering Provider Date Deprosaleerol 40MG Bertha Armas M.D. 08/16/2017 Injection Depomedrol 40MG Bertha Armas M.D. 08/16/2017 Injection Depomedrol 40MG Bertha Armas M.D. 08/16/2017 Injection Deprosaleerol 40MG Bertha Armas M.D. 08/16/2017 Injection Depomedrol 40MG Bertha Armas M.D. 12/05/2016 Injection Depomedrol 40MG Bertha Armas M.D. 12/05/2016 Injection Depomedrol 40MG Bertha Armas M.D. 12/05/2016 Injection Depomedrol 40MG Bertha Armas M.D. 12/05/2016 Injection Inj, Regadenoson, 0.1 [...] Code Status Date Vaccine Reaction Lot # [id number] Given 06/25/2019 Influenza Virus Vaccine, No immediate [id number] Quadrivalent ([id number]), reaction..jh Derived From Cell 32248 Given 05/19/2017 Influenza Virus Vaccine, Pt. tolerated well/No [id number] Quadrivalent, Split, reaction noted. Preservative Free 50546 Given 07/28/2016 Pneumococcal Conjugate [id number] Vaccine 13 Valent For Intramuscular Use 45250 Given 07/12/2016 Influ Virus Vaccine, [id number] Quadrivalent, Split Virus, [place] [address] Given 07/13/2015 Influenza Virus Vaccine, [id number] Quadrivalent, Split, Preservative Free 62702 Given 06/13/2014 Flu Vaccine Split Virus [id number] Preservative Free For Indiv 3Yr Older 27987 Given 05/22/2013 Flu Vaccine Split Virus [id number] Preservative Free For Indiv 3Yr Older Q2037 Given 08/03/2012 Fluvirin Im 3Yrs And Older [id number] 52609 Given 12/06/2011 Pneumonia Vaccine [id number] 76877 Given 12/06/2011 Tdap - [id number] Tetanus/Diptheria/Acellular Pertussis 93741 Given 05/10/2010 Influenza Virus 3Yrs & Over Vital Signs Date Vital Result Comment 08/23/2019 10:33am Height 71.25 inches 5'11.25" Weight 229.00 lb BMI (Body Mass Index) 31.7 kg/m2 08/21/2019 10:54am Height 71.25 inches 5'11.25" Weight 230.00 lb Heart Rate 63 /min BP Systolic 116 mmHg BP Diastolic 70 mmHg Respiratory Rate 16 /min Pain Level 0 BMI (Body Mass Index) 31.9 kg/m2 Results Test Acquired Date Facility Test Result H/L Range Note FLP/Alt Panel 08/23/2019 [facility] Alt 25 U/L Normal 7-[address] [place] [address] [phone] Lipid Profile 08/23/2019 [facility] Triglycerides 153 mg/dL 2 (Trig/Chol/HDL DRIVE ) [place], [place] [id number] [phone] Cholesterol 129 mg/dL 3 HDL Cholesterol 29.8 mg/dL 4 LDL Cholesterol 69 mg/dL 5 Urine Culture And 08/22/2019 [facility] Urine Culture SEE RESULT [address] [place], [place] [id number] [phone] Type & Screen 08/22/2019 [facility] Patient Blood A Positive [address] Type [place], [place] [id number] [phone] Antibody Screen NEGATIVE Laboratory test 08/22/2019 [facility] Partial 44.5 High 26.0- 38.[address] [place] [address] Time PTT [phone] Inr/Protime 08/22/2019 [facility] Inr 2.30 High 0.82-1.[address] [place], [place] [address] [phone] Basic Metabolic 08/22/2019 [facility] Sodium 139 mmol/L Normal 135-[address] [place], [place] [address] [phone] Potassium 4.0 mmol/L Normal 3.5-5.0 Chloride 105 mmol/L Normal 101-111 Co2 Carbon Dioxide 23 mmol/L Normal 22-32 Anion Gap 11 mmol/L Normal 2-11 Glucose 87 mg/dL Normal 70-100 Blood Urea Nitrogen 16 mg/dL Normal 6-24 Creatinine 0.99 mg/dL Normal 0.67-1.17 BUN/Creatinine Ratio 16.2 Normal 8-20 Calcium 9.6 mg/dL Normal 8.6-10.3 Egfr Non- 73.7 >60 Egfr 89.2 >60 8 Urinalysis Profile 08/22/2019 [facility] Urine Color Yellow [address] [place] [address] [phone] Urine Appearance Clear Urine Specific [place] 1.020 Normal 1.010-1.030 Urine pH 5.0 Normal 5-9 Urine Urobilinogen Negative Negative Urine Ketones Negative Negative Urine Protein Negative Negative Urine Leukocytes Negative Negative Urine Blood Negative Negative Urine Nitrite Negative Negative Urine Bilirubin Negative Negative Urine Glucose Negative Negative CBC Auto 08/22/2019 [facility] White Blood 6.0 10^3/uL Normal 3.5-10.[address] [place] [address] [phone] Red Blood Count 4.97 10^6/uL Normal 4.18-5.48 Hemoglobin 15.7 g/dL Normal 14.0-18.0 Hematocrit 45 % Normal 42-52 Mean Corpuscular Volume 91 fL Normal 80-94 Mean Corpuscular Hemoglobin 32 pg High 27-31 Mean Corpuscular HGB Conc 35 g/dL Normal 31-36 Red Cell Distribution Width 13 % Normal 10-15 Platelet Count 189 10^3/uL Normal 150-450 Mean Platelet Volume 8.0 fL Normal 7.4-10.4 Abs Neutrophils 4.1 10^3/uL Normal 1.5-7.7 Abs Lymphocytes 0.9 10^3/uL Low 1.0-4.8 Abs Monocytes 0.6 10^3/uL Normal 0-0.8 Abs Eosinophils 0.3 10^3/uL Normal 0-0.6 Abs Basophils 0.0 10^3/uL Normal 0-0.2 Abs Nucleated RBC 0.0 10^3/uL Granulocyte % 68.3 % Lymphocyte % 15.7 % Monocyte % 10.3 % Eosinophil % 5.0 % Basophil % 0.7 % Nucleated Red Blood Cells % 0.1 Protime W/ Inr 08/15/2019 [employer] In House Prothrombin Time 32.9 Inr 2.7 Protime W/ Inr 08/01/2019 [employer] In House Prothrombin Time 24.8 Inr 2.1 Protime W/ Inr 07/22/2019 [employer] In House Prothrombin Time 19.7 Inr 1.6 Protime W/ Inr 07/12/2019 [employer] In House Prothrombin Time 19.2 Inr 1.6 Protime W/ Inr 07/02/2019 [employer] In House Prothrombin Time 25.5 Inr 2.1 Protime W/ Inr 06/25/2019 [employer] In House Prothrombin Time 37.4 Inr 3.1 1 FASTING 12 HOUR 2 Desirable: <150 Borderline High: 150-199 High: 200-499 Very High: >500 3 Desirable: <200 Borderline High: 200-239 High: >239 4 Low: <40 Desirable: 40-60 High: >60 5 Desirable: <100 Near Optimal: 100-129 Borderline High: 130-159 High: 160-189 Very High: >189 6 SEE RESULT BELOW Name: WILEY GALLOWAY : [address]: Christophe Gonzalez MD Acct: [id number] Unit: [id number] AGE: 73 Location: [facility] Re08/21/19 SEX: M Status: REG REF SPEC: [id number] ROCKY: 08/22/19-[address]: Christophe Gonzalez MD REQ: [id number] RECD: 08/22/19 STATUS: COMP OT DR: Denver Murrell III, MD _ SOURCE: URINE SPDESC: ORDERED: Urine Culture QUERIES: Urine Source: Clean Catch Procedure Result Reported Site Urine Culture Final 08/23/19- 1407 ML No Growth (<1,000 CFU/mL) * ML - Main Lab . END OF REPORT DEPARTMENT OF PATHOLOGY, [address] [place] [address] Ajit Tipton M.D. Director [facility] # [id number] 7 Standard intensity warfarin therapeutic range: 2.0-3.0 High intensity warfarin therapeutic range: 2.5-3.5 8 Because ethnic data is not always readily available, this report includes an eGFR for both -Americans and non- Americans. The National Kidney Disease Education Program (NKDEP) does not endorse the use of the MDRD equation for patients that are not between the ages of 18 and 70, are , have extremes of body size, muscle mass, or nutritional status, or are non- or non-. According to the National Kidney Foundation, irrespective of diagnosis, the stage of the disease is based on the level of kidney function: Stage Description GFR(mL/min/1.73 m(2)) 1 Kidney damage with normal or decreased GFR 90 2 Kidney damage with mild decrease in GFR 60-89 3 Moderate decrease in GFR 30-59 4 Severe decrease in GFR 15-29 5 Kidney failure <15 (or dialysis) Procedures Date Code Description Status 08/09/2019 47440 EKG Tracing & Interpretation Completed 07/26/2019 81764 Pace Maker Eval W/Iterative Adjment Dual Lead Completed 07/26/2019 51349 Pace Maker Eval W/Iterative Adjment Dual Lead Completed 06/27/2019 89201 Pace Maker Eval W/Iterative Adjment Dual Lead Completed 06/27/2019 64313 Pace Maker Eval W/Iterative Adjment Dual Lead Completed 08/10/2015 [id number] Colonoscopy Completed 07/05/2010 96007555 Colonoscopy Completed Medical Devices Description No Information Available Encounters Type Date Location Provider Dx Diagnosis Office Visit 08/16/2019 [facility] Internal Denver El Z01.818 Encounter for other 11:20a Krupa Murrell M.D. preprocedural examination M17.12 Unilateral primary osteoarthritis, left knee I25.10 Athscl heart disease of [place] coronary artery w/o ang pctrs I49.5 Sick sinus syndrome Z86.718 Personal history of other venous thrombosis and embolism E78.2 Mixed hyperlipidemia N40.0 Benign prostatic hyperplasia without lower urinry tract symp G47.33 Obstructive sleep apnea (adult) (pediatric) K21.9 Gastro-esophageal reflux disease without esophagitis Z79.01 long term (current) use of anticoagulants Office Visit 08/09/2019 En Reyes Z01.810 Encounter for 10:45a [facility], preprocedural [facility] FACC, [facility] cardiovascular examination M17.12 Unilateral primary osteoarthritis, left knee I77.810 Thoracic aortic ectasia I25.10 Athscl heart disease of [place] coronary artery w/o ang pctrs I45.10 Unspecified right bundle-branch block Z79.01 USP (current) use of anticoagulants Z86.711 Personal history of pulmonary embolism Office Visit 07/26/2019 10:40a [facility] Internal Denver El J20.9 Acute bronchitis, Krupa Murrell M.D. unspecified [facility] Office Visit 07/12/2019 10:00a [facility] Internal Denver El M17.12 Unilateral primary Krupa Murrell M.D. osteoarthritis, [facility] left knee I83.812 Varicose veins of left lower extremity with pain L98.9 Disorder of the skin and subcutaneous tissue, unspecified Office Visit 07/01/2019 [place] Christophe Gonzalez M17.12 Unilateral primary 1:30p [facility] oste[facility], left [place] knee Office Visit 06/25/2019 [facility] Internal Denver El I49.5 Sick sinus syndrome 9:00a [facility] Murrell M.D. E78.2 Mixed hyperlipidemia N40.0 Benign prostatic hyperplasia without lower urinry tract symp G47.33 Obstructive sleep apnea (adult) (pediatric) Z86.718 Personal history of other venous thrombosis and embolism Z79.01 USP (current) use of anticoagulants Z95.0 Presence of cardiac pacemaker Z23 Encounter for immunization Assessments Date Code Description Provider 08/23/2019 Z01.811 Encounter for preprocedural Graciela Dejesus MD respiratory examination 08/23/2019 G47.33 Obstructive sleep apnea (adult) Graciela Dejesus MD (pediatric) 08/23/2019 K21.9 Gastro-esophageal reflux disease Graciela Dejesus MD without esophagitis 08/21/2019 Z01.818 Encounter for other preprocedural Christophe Gonzalez M.D. examination 08/21/2019 M17.12 Unilateral primary Christophe moreno M.D. left knee 08/16/2019 Z01.818 Encounter for other preprocedural Denver Murrell M.D. examination 08/16/2019 M17.12 Unilateral primary osteoarthritisDenver M.D. 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 [place] coronary artery without angina pectoris 08/16/2019 I49.5 [...] reflux disease Denver Murrell M.D. without esophagitis 08/16/2019 Z79.01 USP (current) use of Denver Murrell M.D. anticoagulants 08/15/2019 Z79.01 long term (current) use of Nurse Visit A anticoagulants 08/15/2019 Z86.718 Personal history of other venous Nurse Visit A thrombosis and embolism 08/09/2019 Z01.810 Encounter for preprocedural Aditya Park M.D., [facility], cardiovascular examination [facility] 08/09/2019 M17.12 Unilateral primary osteoarthritis, Aditya Park M.D. , [facility], left knee [facility] 08/09/2019 I77.810 Thoracic aortic ectasia Aditya Park M.D., [facility], [facility] 08/09/2019 I25.10 Atherosclerotic heart disease of Aditya Park M.D., [facility], [place] coronary artery without angina [facility] pectoris 08/09/2019 I45.10 Unspecified right bundle-branch block Aditya Park M.D., [facility], [facility] 08/09/2019 Z79.01 long term (current) use of Aditya Park M.D., [facility], anticoagulants [facility] 08/09/2019 Z86.711 Personal history of pulmonary Aditya Park M.D., [facility], embolism [facility] 08/01/2019 Z79.01 long term (current) use of Nurse Visit A anticoagulants 08/01/2019 Z86.718 Personal history of other venous Nurse Visit A thrombosis and embolism 07/26/2019 I49.5 Sick sinus syndrome Ica Pacer Schedule 07/26/2019 Z95.0 Presence of cardiac pacemaker Aditya Park M.D., [facility], [facility] 07/26/2019 J20.9 Acute bronchitis, unspecified Denver Murrell M.D. 07/26/2019 Z95.0 Presence of cardiac pacemaker Ica Pacer Schedule 07/22/2019 Z79.01 long term (current) use of Nurse Visit A anticoagulants 07/22/2019 Z86.718 Personal history of other venous Nurse Visit A thrombosis and embolism 07/12/2019 M17.12 Unilateral primary osteoarthritis, Denver Murrell M.D. left knee 07/12/2019 Z79.01 long term (current) use of Nurse Visit A anticoagulants 07/12/2019 I83.812 Varicose veins of left lower Denver Murrell M.D. extremity with pain 07/12/2019 Z86.718 Personal history of other venous Nurse Visit A thrombosis and embolism 07/12/2019 L98.9 Disorder of the skin and subcutaneous Denver Murrell M.D. tissue, unspecified 07/02/2019 Z79.01 long term (current) use of Nurse Visit A anticoagulants 07/02/2019 Z86.718 Personal history of other venous Nurse Visit A thrombosis and embolism 07/01/2019 M17.12 Unilateral primary osteoarthritis, Christophe Gonzalez M.D. left knee 06/27/2019 I49.5 Sick sinus syndrome Ica Pacer Schedule 06/27/2019 Z95.0 Presence of cardiac pacemaker Aditya Park M.D., [facility], [facility] 06/27/2019 Z95.0 Presence of cardiac pacemaker Ica Pacer Schedule 06/25/2019 I49.5 Sick sinus syndrome Denver Murrell M.D. 06/25/2019 E78.2 Mixed hyperlipidemia Denver Murrell M.D. 06/25/2019 N40.0 Benign prostatic hyperplasia without Denver Murrell M.D. lower urinary tract symptoms 06/25/2019 G47.33 Obstructive sleep apnea (adult) Denver Murrell M.D. (pediatric) 06/25/2019 Z86.718 Personal history of other venous Denver Murrell M.D. thrombosis and embolism 06/25/2019 Z79.01 long term (current) use of Denver Murrell M.D. anticoagulants 06/25/2019 Z95.0 Presence of cardiac pacemaker Denver Murrell M.D. 06/25/2019 Z23 Encounter for immunization Denver Murrell M.D. Plan of Treatment Future Appointment(s):08/24/2020 11:15 am - Pippa Gimenez DNP, RN, CLINICAL SOCIAL WORK THERAPIST- at [facility]09/16/2019 10:30 am - Christophe Gonzalez M.D. at [place] [facility] at Mhhebv7110/08/2019 2:00 pm - Keanu Dalton MD at [facility]09/03/2019 7:30 am - Christophe Gonzalez M.D. at [facility] at Zpgijn0808/21/2019 - Christophe Gonzalez M.D.Z01.818 Encounter for other preprocedural examinationFollow up:Follow up: to the OR Will need appointment with Dr. Armas after surgery.M17.12 Unilateral primary osteoarthritis, left knee Functional Status Description No Information Available Mental Status Description No Information Available Referrals Refer to Dr Reason for Referral Status Appt Date Stephanie Hanley MD General skin check Sent 10/08/2019 [address] [facility], [place] [id number] [phone] Humble Spear MD Chronic varicose veins, worse on the L Sent [address] Tank [facility] [place] [address] [phone] Jung Beck MD Previous pt now back in the area; (+) BPH, past Sent [facility] [address] [place] [address] [place] [address] [phone] [facility] Previous pt, now back in the area. (+) sleep apnea; Sent 08/23/2019 on CPAP [address] [place] [address] [phone]
--- OUTSIDE RECORDS SUMMARY | 2019-09-03 05:41 | XMS REPORT | Continuity of Care Document ---
:1945 External Reference #:[id number] Author Name Denver Murrell M.D. (transmitted by agent of provider Rupali Sheldon) Address [address], [place] [address] Care Team Providers Name Role Phone Denver Murrell III, MD - Internal Care Team Information Inside Plant Supervisor Medicine Derek Tompkins MD - Gastroenterology Care Team Information Inside Plant Supervisor Huang Renae MD - Hematology Care Team Information Inside Plant Supervisor Jung Beck MD - Urology Care Team Information Inside Plant Supervisor [phone] [facility] - Sleep Disorder Care Team Information Inside Plant Supervisor Diagnostic Ye Joyner MD - Dermatology Care Team Information Inside Plant Supervisor [phone] Humble Spear MD - Surgery Care Team Information Inside Plant Supervisor Problems Active Problems Provider Date Eruption Denver [...] extremity Sinus node dysfunction Aditya Park M.D., [facility], Onset: 10/09/2013 FASMA Chest pain Aditya Park M.D., [facility], Onset: 06/25/2014 FASMA Obstructive sleep apnea of adult Pippa ROGER Gimenez, RN, Onset: 10/22/2013 [facility]- History of thromboembolism of vein Denver Murrell M.D. Onset: 09/09/2015 Gastroesophageal reflux disease Denver Murrell M.D. Onset: 09/09/2015 Benign prostatic hypertrophy without Denver Murrell M.D. 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 Social History Type Date Description Comments Sex Unknown Cigarette Use Quit 35 Years Ago 2 ppd; began age 17 ETOH Use Occasionally consumes alcohol Tobacco Use Start: Unknown End: Patient is a former Unknown smoker Smoking Status Reviewed: 07/26/19 Patient is a former smoker Exercise Exercises [...] Code Status Date Vaccine Reaction Lot # 21548 Given 06/25/2019 Influenza Virus Vaccine, No immediate [id number] Quadrivalent (Cciiv4), reaction..jh Derived From Cell 60827 Given 05/19/2017 Influenza Virus Vaccine, Pt. tolerated well/No [id number] Quadrivalent, Split, reaction noted. Preservative Free 56611 Given 07/28/2016 Pneumococcal Conjugate [id number] Vaccine 13 Valent For Intramuscular Use 27530 Given 07/12/2016 Influ Virus Vaccine, [id number] Quadrivalent, Split Virus, [place] [address] Given 07/13/2015 Influenza Virus Vaccine, [id number] Quadrivalent, Split, Preservative Free 05567 Given 06/13/2014 Flu Vaccine Split Virus [id number] Preservative Free For Indiv 3Yr Older 90856 Given 05/22/2013 Flu Vaccine Split Virus [id number] Preservative Free For Indiv 3Yr Older Q2037 Given 08/03/2012 Fluvirin Im 3Yrs And Older [id number] 96197 Given 12/06/2011 Pneumonia Vaccine [id number] 56417 Given 12/06/2011 Tdap - [id number] Tetanus/Diptheria/Acellular Pertussis 58689 Given 05/10/2010 Influenza Virus 3Yrs & Over Vital Signs Date Vital Result Comment 07/26/2019 11:04am Height 71.25 inches 5'11.25" Weight 233.00 lb Heart Rate 62 /min BP Systolic Sitting 120 mmHg BP Diastolic Sitting 73 mmHg BMI (Body Mass Index) 32.3 kg/m2 07/12/2019 10:08am Height 71.25 inches 5'11.25" Weight 233.00 lb Heart Rate 61 /min BP Systolic Sitting 118 mmHg BP Diastolic Sitting 70 mmHg BMI (Body Mass Index) 32.3 kg/m2 Results Test Acquired Date Facility Test Result H/L Range Note Protime W/ Inr 07/22/2019 [facility] House Prothrombin Time 19.7 Inr 1.6 Protime W/ Inr 07/12/2019 [facility] Prothrombin Time 19.2 Inr 1.6 Protime W/ Inr 07/02/2019 [facility] Prothrombin Time 25.5 Inr 2.1 Protime W/ Inr 06/25/2019 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 extremity with pain 07/12/2019 Z86.718 Personal history of other venous Nurse Visit A thrombosis and embolism 07/12/2019 L98.9 Disorder of the skin and Denver Murrell M.D. subcutaneous tissue, unspecified 07/02/2019 Z79.01 half-way (current) use of Nurse Visit A anticoagulants 07/02/2019 Z86.718 Personal history of other venous Nurse Visit A thrombosis and embolism 07/01/2019 M17.12 Unilateral primary osteoarthritis, Christophe Gonzalez M.D. left knee 06/27/2019 I49.5 Sick sinus syndrome Ica Pacer Schedule 06/27/2019 Z95.0 Presence of cardiac pacemaker Aditya Park M.D., [facility], [facility] 06/27/2019 Z95.0 Presence of cardiac pacemaker Ica Pacer Schedule 06/25/2019 I49.5 Sick sinus syndrome Denver Murrell M.D. 06/25/2019 E78.2 Mixed hyperlipidemia Denver Murrell M.D. 06/25/2019 N40.0 Benign prostatic hyperplasia without Denver Murrell M.D. lower urinary tract symptoms 06/25/2019 G47.33 Obstructive sleep apnea (adult) Denver Murrell M.D. (pediatric) 06/25/2019 Z86.718 Personal history of other venous Denver Murrell M.D. thrombosis and embolism 06/25/2019 Z79.01 half-way (current) use of Denver Murrell M.D. anticoagulants 06/25/2019 Z95.0 Presence of cardiac pacemaker Denver Murrell M.D. 06/25/2019 Z23 Encounter for immunization Denver Murrell M.D. Plan of Treatment Future Appointment(s):08/19/2019 1:15 pm - Aditya Park M.D., [facility], [facility] at [place] [facility]10/08/2019 2:00 pm - Stephanie Hanley MD at [facility] Nnpgspivbqm13/29/2020 10:30 am - Christophe Gonzalez M.D. at [facility] at Aurqex0908/16/2019 11:20 am - Denver Murrell M.D. at [facility] Internal Medicine - [facility]09/03/2019 7:30 am - Christophe Gonzalez M.D. at [facility] at Klitrt2708/23 11:00 am - Graciela Dejesus MD at [facility]09/2019 - Denver Murrell M.D.J20.9 Acute bronchitis, unspecifiedComments: Lingering cough sx, but improving. CXR with some chronic changes, but no acute findings. No mediastinal changes of sarcoid noted. Functional Status Description No Information Available Mental Status Description No Information Available Referrals Refer to Dr Reason for Referral Status Appt Date Stephanie Hanley MD General skin check Sent 10/08/2019 [address] [facility], [place] [address] [phone] Humble Spear MD Chronic varicose veins, worse on the L Sent [address] [place] [address] [place] [address] [phone] Jung Beck MD Previous pt now back in the area; (+) BPH, past Sent TURP [address] [place] [address] [place] [address] [phone] [facility] Previous pt, now back in the area. (+) sleep apnea; Sent 08/23/[address] [place] [phone]
--- OUTSIDE RECORDS SUMMARY | 2019-09-03 05:41 | XMS REPORT | Continuity of Care Document ---
:1945 External Reference #:[id number] Author Name Aditya Park M.D., [facility], [facility] (transmitted by agent of provider Glo Estrada) Address [address] [place] [address] Care Team Providers Name Role Phone Denver Murrell III, MD - Internal Care Team Information Promotional Advertising Assistant [phone] Medicine Derek Tompkins MD - Gastroenterology Care Team Information Promotional Advertising Assistant Huang Renae MD - Hematology Care Team Information Promotional Advertising Assistant Jung Beck MD - Urology Care Team Information Promotional Advertising Assistant [phone] [facility] - Sleep Disorder Care Team Information Promotional Advertising Assistant Diagnostic Ye Joyner MD - Dermatology Care Team Information Promotional Advertising Assistant Humble Spear MD - Surgery Care Team Information Promotional Advertising Assistant Problems Active Problems Provider Date Eruption Denver [...] extremity Sinus node dysfunction Aditya Park M.D., [facility], Onset: 10/09/2013 FASNC Chest pain Aditya Park M.D., [facility], Onset: 06/25/2014 FASAR Obstructive sleep apnea of adult Pippa EncinasROGER laird, RN, Onset: 10/22/2013 [facility]- History of thromboembolism of vein Denver Murrell M.D. Onset: 09/09/2015 Gastroesophageal reflux disease Denver Murrell M.D. Onset: 09/09/2015 Benign prostatic hypertrophy without Denver Murrell M.D. 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 FASNC pectoris Thoracic aortic ectasia Aditya Park M.D., [facility], Onset: 02/06/2018 [facility] Social History Type Date Description Comments Sex Unknown Cigarette Use Quit 35 Years Ago 2 ppd; began age 17 ETOH Use Occasionally consumes alcohol Tobacco Use Start: Unknown End: Patient is a former Unknown smoker Smoking Status Reviewed: 08/09/19 Patient is a former smoker Exercise Exercises [...] 08/02/2019 25mg Tablets per day Jaz Park, [facility], FASAR Amoxicillin take 4 tabs 1 16caps Z96.651 [...] both Unknown eyes) twice 0.15% Solution daily Medications Administered in Office Medication SIG Qnty Indications Ordering Provider Date Depomedrol 40MG Bertha Shell M.D. 08/16/2017 Injection Depomedrol 40MG Bertha Shell M.D. 08/16/2017 Injection Depomedrol 40MG Bertha Shell M.D. 08/16/2017 Injection Deprosaleerol 40MG Bertha Shell M.D. 08/16/2017 Injection Depomedrol 40MG Bertha Shell M.D. 12/05/2016 Injection Depomedrol 40MG Bertha Shell M.D. 12/05/2016 Injection Kanwalrol 40MG Bertha Shell M.D. 12/05/2016 Injection Depomedrol [...] Code Status Date Vaccine Reaction Lot # [id number] Given 06/25/2019 Influenza Virus Vaccine, No immediate [id number] Quadrivalent (Cciiv4), reaction..jh Derived From Cell 69654 Given 05/19/2017 Influenza Virus Vaccine, Pt. tolerated well/No [id number] Quadrivalent, Split, reaction noted. Preservative Free 46045 Given 07/28/2016 Pneumococcal Conjugate [id number] Vaccine 13 Valent For Intramuscular Use 42939 Given 07/12/2016 Influ Virus Vaccine, [id number] Quadrivalent, Split Virus, [place] [address] Given 07/13/2015 Influenza Virus Vaccine, [id number] Quadrivalent, Split, Preservative Free 68189 Given 06/13/2014 Flu Vaccine Split Virus [id number] Preservative Free For Indiv 3Yr Older 28640 Given 05/22/2013 Flu Vaccine Split Virus [id number] Preservative Free For Indiv 3Yr Older Q2037 Given 08/03/2012 Fluvirin Im 3Yrs And Older [id number] 33597 Given 12/06/2011 Pneumonia Vaccine [id number] 24731 Given 12/06/2011 Tdap - [id number] Tetanus/Diptheria/Acellular Pertussis 05089 Given 05/10/2010 Influenza Virus 3Yrs & Over Vital Signs Date Vital Result Comment 08/09/2019 10:44am Height 71.25 inches 5'11.25" Weight 228.00 lb Heart Rate 60 /min BP Systolic Sitting 120 mmHg Ra< reg BP Diastolic Sitting 68 mmHg Ra< reg BP Systolic Standing 128 mmHg Ra, reg BP Diastolic Standing 68 mmHg Ra, reg BMI (Body Mass Index) 31.6 kg/m2 Ejection Fraction >55% 03/21/19 echo 07/26/2019 11:04am Height 71.25 inches 5'11.25" Weight 233.00 lb Heart Rate 62 /min BP Systolic Sitting 120 mmHg BP Diastolic Sitting 73 mmHg BMI (Body Mass Index) 32.3 kg/m2 Results Test Acquired Date Facility Test Result H/L Range Note Protime W/ Inr 08/01/2019 [facility] In House Prothrombin Time 24.8 Inr 2.1 Protime W/ Inr 07/22/2019 [facility] House Prothrombin Time 19.7 Inr 1.6 Protime W/ Inr 07/12/2019 [facility] Prothrombin Time 19.2 Inr 1.6 Protime W/ Inr 07/02/2019 [facility] House Prothrombin Time 25.5 Inr 2.1 Protime W/ Inr 06/25/2019 [facility] In House Prothrombin Time 37.4 Inr 3.1 Procedures Date Code Description Status 08/09/2019 47258 EKG Tracing & Interpretation Completed 07/26/2019 63829 Pace Maker Eval W/Iterative Adjment Dual Lead Completed 07/26/2019 62250 Pace Maker Eval W/Iterative Adjment Dual Lead Completed 06/27/2019 81736 Pace Maker Eval W/Iterative Adjment Dual Lead Completed 06/27/2019 89751 Pace Maker Eval W/Iterative Adjment Dual Lead Completed 08/10/2015 70015079 Colonoscopy Completed 07/05/2010 [id number] Colonoscopy Completed Medical Devices Description No Information Available Encounters Type Date Location Provider Dx Diagnosis Office Visit 08/09/2019 [facility] Aditya Eric I77.810 Thoracic aortic 10:45a Of Candice Park M.D., ectasia FACC, FASNC Office Visit 07/26/2019 [facility] Internal Denver El J20.9 Acute bronchitis, 10:40a Medicine - Radha Murrell M.D. unspecified Office Visit 07/12/2019 [facility] Internal Denver El M17.12 Unilateral primary 10:00a Krupa - Radha Murrell M.D. osteoarthritis, left knee I83.812 Varicose veins of left lower extremity with pain L98.9 Disorder of the skin and subcutaneous tissue, unspecified Office Visit 07/01/2019 Lita Gonzalez, M17.12 Unilateral primary 1:30p Orthopedics at .[place] osteoarthritis, left [place] knee Office Visit 06/25/2019 [facility] Internal Denver El I49.5 Sick sinus syndrome 9:00a Krupa Murrell M.D. 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 left knee 07/12/2019 Z79.01 tank terminal gauger (current) use of Nurse Visit A anticoagulants 07/12/2019 I83.812 Varicose veins of left lower Denver Murrell M.D. extremity with pain 07/12/2019 Z86.718 Personal history of other venous Nurse Visit A thrombosis and embolism 07/12/2019 L98.9 Disorder of the skin and Denver Murrell M.D. 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 left knee 06/27/2019 I49.5 Sick sinus syndrome Ica Pacer Schedule 06/27/2019 Z95.0 Presence of cardiac pacemaker Aditya Park M.D., [facility], [facility] 06/27/2019 Z95.0 Presence of cardiac pacemaker Ica Pacer Schedule 06/25/2019 I49.5 Sick sinus syndrome Denver Murrell M.D. 06/25/2019 E78.2 Mixed hyperlipidemia Denver Murrell M.D. 06/25/2019 N40.0 Benign prostatic hyperplasia without Denver Murrell M.D. lower urinary tract symptoms 06/25/2019 G47.33 Obstructive sleep apnea (adult) Denver Murrell M.D. (pediatric) 06/25/2019 Z86.718 Personal history of other venous Denver Murrell M.D. 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 anticoagulants 06/25/2019 Z95.0 Presence of cardiac pacemaker Denver Murrell M.D. 06/25/2019 Z23 Encounter for immunization Denver Murrell M.D. Plan of Treatment Future Appointment(s):10/08/2019 2:00 pm - Stephanie Hanley MD at [facility] Umxldqdnsvo67/29/2020 10:30 am - Christophe Gonzalez M.D. at [facility] at Dgstdj1908/16/2019 11:20 am - Denver Murrell M.D. at [facility]:30 am - Christophe Gonzalez M.D. at [facility] at Wfuoqu3108/23 11:00 am - Graciela Dejesus MD at [facility] - Aditya Park M.D., [facility], ZFKBVR56.810 Thoracic aortic ectasiaNew Orders:Echocardiogram, Ordered: 08/09/19Comments:As discussed, I feel you may have needed left knee replacement as scheduled with Dr. oGnzalez from a cardiac standpoint.Follow up:one year after echo Functional Status Description No Information Available Mental Status Description No Information Available Referrals Refer to Dr Reason for Referral Status Appt Date Stephanie Hanley MD General skin check Sent 10/08/2019 [address] [facility], [place] [address] [phone] Humble Spear MD Chronic varicose veins, worse on the L Sent [address] [place] [address] [phone] Jung Beck MD Previous pt now back in the area; (+) BPH, past Sent TURP [address] [place] [address] [place] [address] [phone] [facility] Previous pt, now back in the area. (+) sleep apnea; Sent 08/23/2019 on CPAP [address] [place] [phone]
--- OUTSIDE RECORDS SUMMARY | 2019-09-03 05:41 | XMS REPORT | Continuity of Care Document ---
:1945 External Reference #:[id number] Author Name Joel Sweeney, OD Address [address] [place] [address] Care Team Providers Name Role Phone Denver Murrell MD - General Care Team Information Airborne Operations Superintendent Practice Problems Active Problems Provider Date Primary open-angle glaucoma, mild stage Joel Kumari O.D. Onset: 2014 Vitreous degeneration Derek Azar M.D. Onset: 06/06/2014 Open-angle glaucoma Derek Azar M.D. Onset: 08/23/2013 Nuclear senile cataract Derek Azar M.D. Onset: 08/23/2013 Social History Type Date Description Comments Sex Unknown ETOH Use Currently consumes alcohol Tobacco Use Start: Unknown End: Unknown Patient is a former smoker Smoking Status Reviewed: 08/19/19 Patient is a former smoker Allergies, Adverse Reactions, Alerts Active Allergies Reaction Severity Comments Date Oxycontin with acetaminophen 03/06/2014 Flagyl 06/06/2014 Levaquin 06/06/2014 Sulfa Antibiotics 06/06/2014 Inactive Allergies NKDA 03/06/2014 Medications Active Medications SIG Qnty Indications Ordering Date Provider Betaxolol HCL 1 drop both eyes 10ml Joel Sweeney, 06/22/2017 0.5% twice a day OD Solution Fish Oil Unknown Capsules Glucosamine Unknown Chondroitin Capsules Lansoprazole Prevacid prn Unknown Capsules DR Acevedo Advanced Unknown 1% Gel Triamcinolone Unknown Acetonide Cream Atenolol Unknown 25mg Tablets Warfarin Sodium Unknown 5mg Tablets Atorvastatin Calcium Unknown 40mg Tablets Aspir-81 once per day by Unknown 81mg Tablets DR mouth Ketoconazole Unknown 2% Cream Desonide Unknown 0.05% Ointment Brimonidine Tartrate Instill 1 Drop 15units Derek Azar, In Each Eye Two M.D. 0.15% Solution Times Daily Timolol Maleate Instill 1 Drop 15units Derek Azar, 0.5% In Each Eye Two M.D. Solution Times Daily Immunizations Description No Information Available Vital Signs Date Vital Result Comment 06/22/2017 9:12am Intraocular Pressure Right Eye 13 mmHg Intraocular Pressure Left Eye 13 mmHg 11/21/2016 9:36am Intraocular Pressure Right Eye 14 mmHg Intraocular Pressure Left Eye 13 mmHg Results Description No Information Available Procedures Date Code Description Status 08/19/2019 87465 Eye Exam Est Intermediate Completed Medical Devices Description No Information Available Encounters Description No Information Available Assessments Date Code Description Provider 08/19/2019 H25.13 Age-related nuclear cataract, bilateral Joel Sweeney, OD 08/19/2019 H40.1131 Primary open-angle glaucoma, bilateral, mild Joel Sweeney, OD stage Plan of Treatment 08/19/2019 - Joel Sweeney, ODH25.13 Age-related nuclear cataract, jmaaelimcV25.1131 Primary open-angle glaucoma, bilateral, mild stageFollow up:3 mos VF, sooner PRN Functional Status Description No Information Available Mental Status Description No Information Available Referrals Description No Information Available
--- OUTSIDE RECORDS SUMMARY | 2019-09-03 05:41 | XMS REPORT | Continuity of Care Document ---
:1945 External Reference #:[id number] Author Name Christophe Gonzalez M.D. (transmitted by agent of provider Jodie Omer) Address [address] [place] [address] [place] [address] Care Team Providers Name Role Phone Denver Murrell III, MD - Internal Care Team Information Resolution Agent Medicine Derek Tompkins MD - Gastroenterology Care Team Information Resolution Agent [phone] Huang Renae MD - Hematology Care Team Information Resolution Agent [phone] Jung Beck MD - Urology Care Team Information Resolution Agent [phone] [facility] - Sleep Disorder Care Team Information Resolution Agent [phone] Diagnostic Ye Joyner MD - Dermatology Care Team Information Resolution Agent Humble Spear MD - Surgery Care Team Information Resolution Agent [phone] Problems Active Problems Provider Date Eruption Denver [...] Park M.D., [facility], Onset: 10/09/2013 [facility] Chest pain Aditya Park M.D., [facility], Onset: 06/25/2014 FASNC Obstructive sleep apnea of adult Pippa ROGER Gimenez, RN, Onset: 10/22/2013 [facility]- History of thromboembolism of vein Denver Murrell M.D. Onset: 09/09/2015 Gastroesophageal reflux disease Denver Murrell M.D. Onset: 09/09/2015 Benign prostatic hypertrophy without Denver Murrell M.D. 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 08/16/2017 Injection Kanwalrol 40MG Bertha Armas M.D. 08/16/2017 Injection Deprosaleerol 40MG Bertha Armas M.D. 08/16/2017 Injection Kanwalrol 40MG Bertha Armas M.D. 12/05/2016 Injection Depomedrol 40MG Bertha Armas M.D. 12/05/2016 Injection Deprosaleerol 40MG Bertha Armas M.D. 12/05/2016 Injection Depomedrol [...] Code Status Date Vaccine Reaction Lot # [id number] Given 06/25/2019 Influenza Virus Vaccine, No immediate [id number] Quadrivalent ([id number]), reaction..jh Derived From Cell 25279 Given 05/19/2017 Influenza Virus Vaccine, Pt. tolerated well/No [id number] Quadrivalent, Split, reaction noted. Preservative Free 14114 Given 07/28/2016 Pneumococcal Conjugate [id number] Vaccine 13 Valent For Intramuscular Use 41738 Given 07/12/2016 Influ Virus Vaccine, [id number] Quadrivalent, Split Virus, [place] [address] Given 07/13/2015 Influenza Virus Vaccine, [id number] Quadrivalent, Split, Preservative Free 36770 Given 06/13/2014 Flu Vaccine Split Virus [id number] Preservative Free For Indiv 3Yr Older 76353 Given 05/22/2013 Flu Vaccine Split Virus [id number] Preservative Free For Indiv 3Yr Older Q2037 Given 08/03/2012 Fluvirin Im 3Yrs And Older [id number] 30915 Given 12/06/2011 Pneumonia Vaccine [id number] 95253 Given 12/06/2011 Tdap - [id number] Tetanus/Diptheria/Acellular Pertussis 82813 Given 05/10/2010 Influenza Virus 3Yrs & Over Vital Signs Date Vital Result Comment 08/21/2019 10:54am Height 71.25 inches 5'11.25" Weight 230.00 lb Heart Rate 63 /min BP Systolic 116 mmHg BP Diastolic 70 mmHg Respiratory Rate 16 /min Pain Level 0 BMI (Body Mass Index) 31.9 kg/m2 08/16/2019 11:52am Height 71.25 inches 5'11.25" Weight 230.38 lb Heart Rate 60 /min BP Systolic 114 mmHg BP Diastolic 71 mmHg Body Temperature 97.7 F O2 % BldC Oximetry 96 % BMI (Body Mass Index) 31.9 kg/m2 Results Test Acquired Date Facility Test Result H/L Range Note Protime W/ Inr 08/15/2019 [facility] Prothrombin Time 32.9 Inr 2.7 Protime W/ Inr 08/01/2019 [facility] [employer] [facility] In House Prothrombin Time 24.8 Inr 2.1 Protime W/ Inr 07/22/2019 [facility] [employer] [facility] In House Prothrombin Time 19.7 Inr 1.6 Protime W/ Inr 07/12/2019 [facility] [employer] [facility] In House Prothrombin Time 19.2 Inr 1.6 Protime W/ Inr 07/02/2019 [facility] [employer] [facility] In House Prothrombin Time 25.5 Inr 2.1 Protime W/ Inr 06/25/2019 [facility] [employer] [facility] In House Prothrombin Time 37.4 Inr 3.1 Procedures Date Code Description Status 08/09/2019 84265 EKG Tracing & Interpretation Completed 07/26/2019 77010 Pace Maker Eval W/Iterative Adjment Dual Lead Completed 07/26/2019 61269 Pace Maker Eval W/Iterative Adjment Dual Lead Completed 06/27/2019 55759 Pace Maker Eval W/Iterative Adjment Dual Lead Completed 06/27/2019 44091 Pace Maker Eval W/Iterative Adjment Dual Lead Completed 08/10/2015 [id number] Colonoscopy Completed 07/05/2010 87354004 Colonoscopy Completed Medical Devices Description No Information Available Encounters Type Date Location Provider Dx Diagnosis Office Visit 08/09/2019 [facility] Aditya Reyes Z01.810 Encounter for 10:45a Of Candice Park M.D., preprocedural FACC, FAS[facility] cardiovascular examination M17.12 Unilateral primary osteoarthritis, left knee I77.810 Thoracic aortic ectasia I25.10 Athscl heart disease of [place] coronary artery w/o ang pctrs I45.10 Unspecified right bundle-branch block Z79.01 FDC (current) use of anticoagulants Z86.711 Personal history of pulmonary embolism Office Visit 07/26/2019 10:40a [facility] Internal Denver El J20.9 Acute bronchitis, Krupa Murrell M.D. unspecified [facility] Office Visit 07/12/2019 10:00a [facility] Internal Denver El M17.12 Unilateral primary Krupa Murrell M.D. osteoarthritis, [facility] left knee I83.812 Varicose veins of left lower extremity with pain L98.9 Disorder of the skin and subcutaneous tissue, unspecified Office Visit 07/01/2019 Nicole Do7.12 Unilateral primary 1:30p [facility] oste[facility], left [place] knee Office Visit 06/25/2019 [facility] Internal Denver El I49.5 Sick sinus syndrome 9:00a [facility] 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 examination 08/21/2019 M17.12 Unilateral primary osteoarthritisChristophe M.D. left knee 08/16/2019 Z01.818 Encounter for other preprocedural Denver Murrell M.D. examination 08/16/2019 M17.12 Unilateral primary osteoarthritisDenver M.D. 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 07/26/2019 Z95.0 Presence of cardiac pacemaker Ica Pacer Schedule 07/22/2019 Z79.01 FDC (current) use of Nurse Visit A anticoagulants 07/22/2019 Z86.718 Personal history of other venous Nurse Visit A thrombosis and embolism 07/12/2019 M17.12 Unilateral primary osteoarthritis, Denver Murrell M.D. left knee 07/12/2019 Z79.01 FDC (current) use of Nurse Visit A anticoagulants 07/12/2019 I83.812 Varicose veins of left lower Denver Murrell M.D. extremity with pain 07/12/2019 Z86.718 Personal history of other venous Nurse Visit A thrombosis and embolism 07/12/2019 L98.9 Disorder of the skin and subcutaneous Denver Murrell M.D. 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 left knee 06/27/2019 I49.5 Sick sinus syndrome Ica Pacer Schedule 06/27/2019 Z95.0 Presence of cardiac pacemaker Aditya Park M.D., [facility], [facility] 06/27/2019 Z95.0 Presence of cardiac pacemaker Ica Pacer Schedule 06/25/2019 I49.5 Sick sinus syndrome Denver Murrell M.D. 06/25/2019 E78.2 Mixed hyperlipidemia Denver Murrell M.D. 06/25/2019 N40.0 Benign prostatic hyperplasia without Denver Murrell M.D. lower urinary tract symptoms 06/25/2019 G47.33 Obstructive sleep apnea (adult) Denver Murrell M.D. (pediatric) 06/25/2019 Z86.718 Personal history of other venous Denver Murrell M.D. 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 06/25/2019 Z23 Encounter for immunization Denver Murrell M.D. Plan of Treatment Future Appointment(s):09/16/2019 10:30 am - Christophe Gonzalez M.D. at [facility] at [id number]/08/2019 2:00 pm - Keanu Dalton MD at [facility]09/03/2019 7:30 am - Christophe Gonzalez M.D. at [facility] at [id number]/23/2019 11:00 am - Graciela Dejesus MD at [facility]08/21/2019 - Christophe Gonzalez M.D.Z01.818 Encounter for other preprocedural examinationFollow up:Follow up: to the OR Will need appointment with Dr. Armas after surgery.M17.12 Unilateral primary osteoarthritis, left knee Functional Status Description No Information Available Mental Status Description No Information Available Referrals Refer to Dr Reason for Referral Status Appt Date Stephanie Hanley MD General skin check Sent 10/08/2019 [address] [facility], [place] [id number] [phone] Humble Spear MD Chronic varicose veins, worse on the L Sent [address] [place] [address] [place] [address] [phone] Jung Beck MD Previous pt now back in the area; (+) BPH, past Sent TURP [address] [facility] [place] [address] [place] [address] [phone] [facility] Previous pt, now back in the area. (+) sleep apnea; Sent 08/23/2019 on CPAP [address] [place] [phone]
--- OUTSIDE RECORDS SUMMARY | 2019-09-03 05:41 | XMS REPORT | Continuity of Care Document ---
:1945 External Reference #:[id number] Author Name Graciela Dejesus MD (transmitted by agent of provider Yris Cook) Address [address], [address] [place] [address] Care Team Providers Name Role Phone Denver Murrell III, MD - Internal Care Team Information Parts Product Analyst [phone] Medicine Derek Tompkins MD - Gastroenterology Care Team Information Parts Product Analyst Huang Renae MD - Hematology Care Team Information Parts Product Analyst Jung Beck MD - Urology Care Team Information Parts Product Analyst [phone] [facility] - Sleep Disorder Care Team Information Parts Product Analyst [phone] Diagnostic Ye Joyner MD - Dermatology Care Team Information Parts Product Analyst Humble Spear MD - Surgery Care Team Information Parts Product Analyst Problems Active Problems Provider Date Eruption Denver [...] distal lower extremity Sinus node dysfunction Aditya Prak M.D., [facility], Onset: 10/09/2013 [facility] Chest pain Aditya Park M.D., [facility], Onset: 06/25/2014 [facility] Obstructive sleep apnea of adult Pippa ROGER Gimenez, RN, Onset: 10/22/2013 [facility]- History of thromboembolism of vein Denver Murrell M.D. Onset: 09/09/2015 Gastroesophageal reflux disease Denver Murrell M.D. Onset: 09/09/2015 Benign prostatic hypertrophy without Denver Murrell M.D. 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 07/06/2016 500mg hour prior to Capsules dental work Aspir-81 1 by mouth every I25.10 Aditya Reyes 12/16/[address] guillermo Park M.D., [facility], [facility] Lipitor 1 by mouth at 30tabs I25.10 [...] Depomedrol 40MG Bertha Armas M.D. 12/05/2016 Injection Saulomedrol 40MG Bertha Armas M.D. 12/05/2016 Injection Saulomedrol 40MG Bertha Armas M.D. 12/05/2016 Injection Kanwalrol 40MG Bertha Armas M.D. 12/05/2016 Injection Inj, [...] Code Status Date Vaccine Reaction Lot # [id number] Given 06/25/2019 Influenza Virus Vaccine, No immediate [id number] Quadrivalent ([id number]), reaction..jh Derived From Cell 30575 Given 05/19/2017 Influenza Virus Vaccine, Pt. tolerated well/No [id number] Quadrivalent, Split, reaction noted. Preservative Free 31173 Given 07/28/2016 Pneumococcal Conjugate [id number] Vaccine 13 Valent For Intramuscular Use 03481 Given 07/12/2016 Influ Virus Vaccine, [id number] Quadrivalent, Split Virus, [place] [address] Given 07/13/2015 Influenza Virus Vaccine, [id number] Quadrivalent, Split, Preservative Free 68113 Given 06/13/2014 Flu Vaccine Split Virus [id number] Preservative Free For Indiv 3Yr Older 60070 Given 05/22/2013 Flu Vaccine Split Virus [id number] Preservative Free For Indiv 3Yr Older Q2037 Given 08/03/2012 Fluvirin Im 3Yrs And Older [id number] 19589 Given 12/06/2011 Pneumonia Vaccine [id number] 68387 Given 12/06/2011 Tdap - [id number] Tetanus/Diptheria/Acellular Pertussis 99950 Given 05/10/2010 Influenza Virus 3Yrs & Over [...] Date Facility Test Result H/L Range Note CBC Auto 08/22/2019 [facility] White Blood 6.0 10^3/uL Normal 3.5-10.[address] [place] [address] [phone] Red Blood Count 4.97 10^6/uL Normal 4.18-5.48 [...] % Nucleated Red Blood Cells % 0.1 Urinalysis Profile 08/22/2019 [facility] Urine Color Yellow [address] [place] [address] [phone] Urine Appearance Clear Urine Specific [place] 1.020 Normal 1.010-1.030 Urine pH 5.0 Normal 5-9 Urine Urobilinogen Negative Negative Urine Ketones Negative Negative Urine Protein Negative Negative Urine Leukocytes Negative Negative Urine Blood Negative Negative Urine Nitrite Negative Negative Urine Bilirubin Negative Negative Urine Glucose Negative Negative Basic Metabolic 08/22/2019 [facility] Sodium 139 mmol/L Normal 135-[address] [place] [address] [phone] Potassium 4.0 mmol/L Normal 3.5-5.0 Chloride 105 mmol/L Normal 101-111 Co2 Carbon Dioxide 23 mmol/L Normal 22-32 Anion Gap 11 mmol/L Normal 2-11 Glucose 87 mg/dL Normal 70-100 Blood Urea Nitrogen 16 mg/dL Normal 6-24 Creatinine 0.99 mg/dL Normal 0.67-1.17 BUN/Creatinine Ratio 16.2 Normal 8-20 Calcium 9.6 mg/dL Normal 8.6-10.3 Egfr Non- 73.7 >60 Egfr 89.2 >60 1 Inr/Protime 08/22/2019 [facility] Inr 2.30 High 0.82-1.[address] [place] [address] [phone] Laboratory test 08/22/2019 [facility] Partial 44.5 seconds High 26.0-38.[address] [place] [address] Time PTT [phone] Type & Screen 08/22/2019 [facility] Patient A Positive [address] [place] [address] [phone] Antibody Screen NEGATIVE Protime W/ Inr 08/15/2019 [facility] House Prothrombin Time 32.9 Inr 2.7 Protime W/ Inr 08/01/2019 [facility] In House Prothrombin Time 24.8 Inr 2.1 Protime W/ Inr 07/22/2019 [facility] In House Prothrombin Time 19.7 Inr 1.6 Protime W/ Inr 07/12/2019 [facility] In House Prothrombin Time 19.2 Inr 1.6 Protime W/ Inr 07/02/2019 [facility] In House Prothrombin Time 25.5 Inr 2.1 Protime W/ Inr 06/25/2019 [facility] In House Prothrombin Time 37.4 Inr 3.1 1 Because ethnic data is not always readily [...] 15-29 5 Kidney failure <15 (or dialysis) 2 Standard intensity warfarin therapeutic range: 2.0-3.0 High intensity warfarin therapeutic range: 2.5-3.5 Procedures Date Code Description Status 08/09/2019 77256 EKG Tracing & Interpretation Completed 07/26/2019 50148 Pace Maker Eval W/Iterative Adjment Dual Lead Completed 07/26/2019 13539 Pace Maker Eval W/Iterative Adjment Dual Lead Completed 06/27/2019 36922 Pace Maker Eval W/Iterative Adjment Dual Lead Completed 06/27/2019 68365 Pace Maker Eval W/Iterative Adjment Dual Lead Completed 08/10/2015 [id number] Colonoscopy Completed 07/05/2010 70238467 Colonoscopy Completed Medical Devices Description No Information Available Encounters Type Date Location Provider Dx Diagnosis Office Visit 08/23/2019 Pulmonology And Graciela Dejesus, Z01.811 Encounter for 11:00a [facility] preprocedural [facility] respiratory examination G47.33 Obstructive sleep apnea (adult) (pediatric) K21.9 Gastro-esophageal reflux disease without esophagitis Office Visit 08/16/2019 11:20a [facility] Internal Denver El Z01.818 Encounter for other Medicine - Jaz Murrell preprocedural Ccmob examination M17.12 Unilateral primary osteoarthritis, left knee I25.10 Athscl heart disease of [place] coronary artery w/o ang pctrs I49.5 Sick sinus syndrome Z86.718 Personal history of other venous thrombosis and embolism E78.2 Mixed hyperlipidemia N40.0 Benign prostatic hyperplasia without lower urinry tract symp G47.33 Obstructive sleep apnea (adult) (pediatric) K21.9 Gastro-esophageal reflux disease without esophagitis 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 Office Visit 08/09/2019 En Reyes Z01.810 Encounter for 10:45a Cardiology Of Jaz [place], preprocedural [facility] FACC, FASNC cardiovascular examination M17.12 Unilateral primary osteoarthritis, left knee I77.810 Thoracic aortic ectasia I25.10 Athscl heart disease of [place] coronary artery w/o ang pctrs I45.10 Unspecified right bundle-branch block Z79.01 MCC (current) use of anticoagulants Z86.711 Personal history of pulmonary embolism Office Visit 07/26/2019 10:40a [facility] Internal Denver El J20.9 Acute bronchitis, Krup[facility]. [facility]/12/2019 10:00a [facility] Willian El M17.12 Unilateral primary Krupa Murrell M.D. oste[facility] I83.812 Varicose veins of left lower extremity with pain L98.9 Disorder of the skin and subcutaneous tissue, unspecified Office Visit 07/01/2019 Lita Gonzalez M17.12 Unilateral primary 1:30p Orthopedics at [facility] osteoarthritis, left [place] knee Office Visit 06/25/2019 [facility] Willian El I49.5 Sick sinus syndrome 9:00a Krupa Murrell M.D. E78.2 Mixed hyperlipidemia N40.0 Benign prostatic hyperplasia without lower urinry tract symp G47.33 Obstructive sleep apnea (adult) (pediatric) Z86.718 Personal history of other venous thrombosis and embolism Z79.01 MCC (current) use of anticoagulants Z95.0 Presence of cardiac pacemaker Z23 Encounter for immunization Assessments Date Code Description Provider 08/23/2019 Z01.811 Encounter for preprocedural Graciela Dejesus MD respiratory examination 08/23/2019 G47.33 Obstructive sleep apnea (adult) Graciela Dejesus MD (pediatric) 08/23/2019 K21.9 Gastro-esophageal reflux disease Graciela Dejesus MD without esophagitis 08/21/2019 Z01.818 Encounter for other preprocedural Christophe Gonzalez M.D. examination 08/21/2019 M17.12 Unilateral primary osteoarthritis, Christophe Gonzalez M.D. left knee 08/16/2019 Z01.818 Encounter for other preprocedural Denver Murrell M.D. examination 08/16/2019 M17.12 Unilateral primary osteoarthritis, Denver Murrell M.D. 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 [place] coronary artery without angina pectoris 08/16/2019 I49.5 [...] Denver Murrell M.D. without esophagitis 08/16/2019 Z79.01 MCC (current) use of Denver Murrell M.D. 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 , [facility], left knee FASCT 08/09/2019 I77.810 Thoracic aortic ectasia Aditya Park M.D., [facility], [facility] 08/09/2019 I25.10 Atherosclerotic heart disease of Aditya Park M.D., [facility], [place] coronary artery without angina FASCT pectoris 08/09/2019 I45.10 Unspecified right bundle-branch block Aditya Park M.D., [facility], [facility] 08/09/2019 Z79.01 MCC (current) use of Aditya Park M.D., [facility], anticoagulants [facility] 08/09/2019 Z86.711 Personal history of pulmonary Aditya Park M.D., [facility], embolism [facility] 08/01/2019 Z79.01 MCC (current) use of Nurse Visit A anticoagulants 08/01/2019 Z86.718 Personal history of other venous Nurse Visit A thrombosis and embolism 07/26/2019 I49.5 Sick sinus syndrome Ica Pacer Schedule 07/26/2019 Z95.0 Presence of cardiac pacemaker Aditya Park M.D., [facility], [facility] 07/26/2019 J20.9 Acute bronchitis, unspecified Denver Murrell M.D. 07/26/2019 Z95.0 Presence of cardiac pacemaker Ica Pacer Schedule 07/22/2019 Z79.01 MCC (current) use of Nurse Visit A anticoagulants 07/22/2019 Z86.718 Personal history of other venous Nurse Visit A thrombosis and embolism 07/12/2019 M17.12 Unilateral primary osteoarthritis, Denver Murrell M.D. 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 extremity with pain 07/12/2019 Z86.718 Personal history of other venous Nurse Visit A thrombosis and embolism 07/12/2019 L98.9 Disorder of the skin and subcutaneous Denver Murrell M.D. 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 left knee 06/27/2019 I49.5 Sick sinus syndrome Ica Pacer Schedule 06/27/2019 Z95.0 Presence of cardiac pacemaker Aditya Park M.D., [facility], [facility] 06/27/2019 Z95.0 Presence of cardiac pacemaker Ica Pacer Schedule 06/25/2019 I49.5 Sick sinus syndrome Denver Murrell M.D. 06/25/2019 E78.2 Mixed hyperlipidemia Denver Murrell M.D. 06/25/2019 N40.0 Benign prostatic hyperplasia without Denver Murrell M.D. lower urinary tract symptoms 06/25/2019 G47.33 Obstructive sleep apnea (adult) Denver Murrell M.D. (pediatric) 06/25/2019 Z86.718 Personal history of other venous Denver Murrell M.D. thrombosis and embolism 06/25/2019 Z79.01 MCC (current) use of Denver Murrell M.D. anticoagulants 06/25/2019 Z95.0 Presence of cardiac pacemaker Denver Murrell M.D. 06/25/2019 Z23 Encounter for immunization Denver Murrell M.D. Plan of Treatment Future Appointment(s):08/24/2020 11:15 am - Pippa Gimenez DNP, RN, AUDIT TECH-BC at [facility]09/16/2019 10:30 am - Christophe Gonzalez M.D. at [facility] at [place]6210/08/2019 2:00 pm - Keanu Dalton MD at [facility]09/03/2019 7:30 am - Christophe Gonzalez M.D. at [facility] at [place]3208/23/2019 - Graciela Dejesus MDZ01.811 Encounter for preprocedural respiratory [id number] Obstructive sleep apnea (adult) (pediatric)Follow up:1 yearK21.9 Gastro-esophageal reflux disease without esophagitis Functional Status Description No Information Available Mental Status Description No Information Available Referrals Refer to Dr Reason for Referral Status Appt Date Stephanie Hanley MD General skin check Sent 10/08/[address], [place] [address] [phone] Humble Spear MD Chronic varicose veins, worse on the L [place] [address] [place] [address] [phone] Jung Beck MD Previous pt now back in the area; (+) BPH, past Sent [facility] [address] [place] [address] [phone] [facility] Previous pt, now back in the area. (+) sleep apnea; Sent 08/23/2019 on CPAP [address] [place] [id number] [phone]
[2019-09-03] MEDS ORDERED: Lactated Ringers 1000 ML Bag* 1,000 ML IV SCH (06:00)
[2019-09-03] MEDS ORDERED: Famotidine IV* 10 MG/ML 2 ML (20 mg) IV ONE (06:00)
[2019-09-03] MEDS ORDERED: ceFAZolin 2 GM in NS PREMIX(*) 2 GM/100 ML BAG IVPB ONE (06:14)
[2019-09-03] MEDS ORDERED: Buffered Lidocaine 1% SYRIN* 1 ML/SYRINGE INTRADERM ONE (06:14)
[2019-09-03] MEDS ORDERED: Famotidine IV* 10 MG/ML 2 ML (20 mg) ONE (06:14)
[2019-09-03] MEDS ORDERED: Bupivacaine 0.5% W/EPI SDV* 10 ML VIAL INJ ONE (06:42)
[2019-09-03 06:52] LABS: INR 1.12 (0.82-1.09)
[2019-09-03] MEDS ORDERED: Lidocaine 1% MPF ** 5 ML VIAL ONE (07:23)
[2019-09-03] MEDS ORDERED: ROPIVACAINE 5 MG/ML 30 ML BTL (0.5%) ONE (07:23)
[2019-09-03] MEDS ORDERED: Midazolam* 1 MG/ML 5 ML VIAL (5 MG) ONE (07:38)
[2019-09-03] MEDS ORDERED: KETAMINE HCL* 50 MG/ML 10 ML VIAL ONE (08:15)
[2019-09-03] MEDS ORDERED: Ketorolac INJ* 30 MG/ML 1 ML VIAL ONE (09:06)
[2019-09-03] MEDS ORDERED: Propofol* 500 MG/50 ML BTL ONE (09:06)
[2019-09-03] MEDS ORDERED: Ondansetron INJ* 2 MG/ML VIAL ONE (09:06)
[2019-09-03] MEDS ORDERED: Glycopyrrolate IV* 0.2 MG/ML 1 ML VIAL ONE (09:06)
[2019-09-03] MEDS ORDERED: Propofol* 10 MG/ML 20 ML BTL ONE (09:06)
[2019-09-03] MEDS ORDERED: Phenylephrine 40 MCG/ML SYRINGE ONE (09:06)
[2019-09-03] MEDS ORDERED: HYDROmorphone INJ1* 1 MG/ML SYRINGE ONE (09:14)
[2019-09-03] MEDS ORDERED: DiMENhydriNATE IV* 50 MG/ML VIAL IV PUSH PRN (09:51)
[2019-09-03] MEDS ORDERED: Naloxone* 0.4 MG/ML 1 ML VIAL IV PRN (09:51)
[2019-09-03] MEDS ORDERED: HYDROmorphone INJ1* 1 MG/ML SYRINGE IV PRN (09:51)
[2019-09-03] MEDS ORDERED: HYDROcodone/ACETAMIN 5-325 MG* 1 TAB PO PRN (09:51)
[2019-09-03] MEDS ORDERED: Morphine INJ* 2 MG/ML 1 ML SYRINGE (TWO MG - NEW SYRINGE VERSION) IV PRN (10:55)
[2019-09-03] MEDS ORDERED: diPHENhydraMINE PO* 25 MG PO PRN (10:55)
[2019-09-03] MEDS ORDERED: Ondansetron ODT TAB* 4 MG PO PRN (10:55)
[2019-09-03] MEDS ORDERED: Cyclobenzaprine TAB* 10 MG PO PRN (10:55)
[2019-09-03] MEDS ORDERED: Magnesium Hydroxide LIQ* 30 ML UDC PO PRN (10:55)
[2019-09-03] MEDS ORDERED: diPHENhydraMINE IV* 50 MG/ML 1 ml VIAL (BENADRYL) IV PRN (10:55)
[2019-09-03] MEDS ORDERED: Saline NASAL SPRAY 0.65%* BTL BOTH NARES PRN (11:09)
[2019-09-03] MEDS ORDERED: ZINC OXIDE TOPICAL PRN (11:09)
[2019-09-03] MEDS ORDERED: Pantoprazole TAB * 40 MG TAB PO PRN (11:09)
[2019-09-03] MEDS ORDERED: Albuterol HFA INHALER* 8 gm MDI INH PRN (11:09)
[2019-09-03] MEDS: Lactated Ringers 1000 ML Bag* 1,000 ML IV SCH (12:18)
[2019-09-03] MEDS: oxyCODONE TAB* 5 MG TAB PO PRN ×3 (13:07→23:58)
[2019-09-03] MEDS ORDERED: [UNRECOGNIZED DRUG - REMARK] INH SCH (14:00)
[2019-09-03] MEDS: Acetaminophen TAB* 325 MG PO SCH ×2 (14:33→22:11)
[2019-09-03] MEDS: ceFAZolin 1 GM ADVAN(*) 1 GM in NS 0.9% 50 ML* 50 ML IVPB SCH ×2 (15:56→23:58)
[2019-09-03] MEDS ORDERED: Warfarin TAB(*) 7.5 MG PO ONE (17:00)
[2019-09-03] MEDS: Ondansetron INJ* 2 MG/ML VIAL IV PRN (18:57)
--- NOTE | 2019-09-03 20:22 | CONS ---
HOSPITAL MEDICINE CONSULTATION REPORT: DATE OF CONSULT: 09/03/19 PROVIDER: Vivienne Whyte NP ATTENDING PHYSICIAN WHILE IN THE HOSPITAL: Dr. Gonzalez. CONSULTING PHYSICIAN: Dr. Helen Thompson (dictated by Vivienne Whyte NP). REASON FOR CONSULT: Co-management of chronic medical conditions. HISTORY OF PRESENT ILLNESS: Mr. Samuel is a 73-year-old male with past medical history significant for sarcoidosis, pacemaker, hernia, sleep apnea, venous insufficiency, varicose veins, PE and DVT, glaucoma and cataracts, GERD, who presented to [facility] for an elective left total knee arthroplasty with Dr. Gonzalez. Please see dictated H and P from Rhys [place] for complete details. In brief, the patient had ongoing pain, failed conservative measures, therefore opted for an elective left total knee arthroplasty with Dr. Gonzalez. In the immediate postoperative period, the patient has no complaints. He denies any recent illnesses. He denies any fever, chills, chest pain, shortness of breath. Denies any nausea, vomiting, diarrhea, or abdominal pain. Denies any gross hematuria or dysuria. Denies any weakness, rashes, lesions, open sores, psychosis or anxiety. Due to the patient's history of sarcoidosis, sleep apnea, and history of DVT/PE , hospital medicine was asked to see and help co-manage his care during this hospitalization. PAST MEDICAL HISTORY: Significant for: 1. Sarcoidosis. 2. Sleep apnea. 3. Venous insufficiency. 4. Varicose veins. 5. History of PE in 1980 after a laminectomy. 6. DVT in 2012 after a long car ride. 7. Glaucoma. 8. Cataracts. 9. GERD. 10. Anxiety. 11. CAD PAST SURGICAL HISTORY: 1. Pacemaker placement. 2. Hernia repair with mesh. 3. L4-5 laminectomy. 4. Right total knee arthroplasty. 5. Appendectomy. 6. Tonsillectomy. HOME MEDICATIONS: Include: 1. Atenolol 25 mg p.o. at bedtime. 2. Aspirin 81 mg p.o. daily. 3. Albuterol HFA inhaler 2 puffs q.4 hours as needed. 4. Acetaminophen 1 to 2 tablets twice daily as needed for pain. 5. Atorvastatin 40 mg at bedtime. 6. Betaxolol 0.5% 1 drop to both eyes b.i.d. 7. Alphagan eye drops 0.2% 1 drop to both eyes b.i.d. 8. Prevacid 15 mg with meals. 9. Saline nasal spray as needed. 10. Coumadin 7.5 alternating 7.5, 5 days a week; 10, 2 days a week. ALLERGIES: To CEFDINIR, CEPHALEXIN, LEVOTHYROXINE, FLAGYL, and SULFA. FAMILY HISTORY: Maternal grandmother with stomach cancer. SOCIAL HISTORY: The patient quit smoking 40 years ago. Prior to that he smoked socially a pack a day for approximately 3 years. He does report he drinks wine 3 days a week. He currently lives with his significant other. Surrogate decision maker in the event he is unable to make this own decisions is his significant other, Jil. He is a full code. REVIEW OF SYSTEMS: A 14-point review of systems was completed. All pertinent positives were mentioned in the HPI. PHYSICAL EXAM: General: At this time, Mr. Samuel is alert and oriented, resting in his hospital bed. He is in no acute distress. Vital Signs: Blood pressure 121/68, heart rate is 59, respirations 16, O2 saturation 100% on room air, temperature was 97.3. HEENT: Head is atraumatic, normocephalic. Eyes: EOMs are intact. Sclerae anicteric and not pale. Oral mucosa is moist. Neck is supple. Lungs are clear to auscultation bilaterally. No wheezes, rales, or rhonchi. Cardiac: S1, S2. Regular rate and rhythm. No murmurs, rubs, or gallops. Abdomen is soft and nontender. Bowel sounds are present x4. Extremities: He is able to move all 4 extremities. There is no clubbing or cyanosis. Pedal pulses are +2 bilaterally. He does have a dressing that is dry and intact to his left knee. Neurologic: He is awake, alert, oriented x3. Speech is clear. Thought process is intact. Skin: He does have a dressing dry and intact to his left knee. DIAGNOSTIC STUDIES/LAB DATA: INR 1.12. CBC from 08/22/19: WBCs were 6.0, RBCs 4.97, hemoglobin 15.7, hematocrit was 45, platelet count was 189. CMP: Sodium was 139, potassium 4.0, chloride 105, carbon dioxide was 23, anion gap was 11, BUN was 16, creatinine 0.99, glucose was 87. Urine was within normal limits. ASSESSMENT AND PLAN: Mr. Samuel is a 73-year-old male with past medical history significant for sarcoidosis, sleep apnea, venous insufficiency, varicose veins, history of pulmonary embolism and deep venous thrombosis, gastroesophageal reflux disease, cataracts, and glaucoma, who presented to [facility] for an elective left total knee arthroplasty with Dr. Gonzalez. Our recommendations are as follows : 1. Status post left total knee arthroplasty. Management per Orthopedics. Physical therapy/occupational therapy per Orthopedics. Bowel regimen per Orthopedics. Pain management per Orthopedics and deep venous thrombosis prophylaxis per Orthopedics. 2. History of pulmonary embolism/deep venous thrombosis: The patient has had 2 episodes of provoked deep venous thrombosis/pulmonary embolism. He is on chronic Coumadin therapy. He should be bridged with full strength Lovenox starting tomorrow morning until his INR is therapeutic above 2. 3. Gastroesophageal reflux disease. He should continue on Prevacid as previously prescribed. 4. Glaucoma. He should continue on home eye drops, brimonidine and betaxolol as previously prescribed. 5. Hyperlipidemia. He should continue on Lipitor 40 mg p.o. daily. 6. CAD. He should continue on atenolol 25 mg p.o. daily, resume aspirin when able and continue statin. 7. FEN: He can have a regular diet. 8. Code status: He is a full code. 9. DVT prophylaxis: As per Orthopedics. TIME SPENT: Time spent on this consultation was 45 minutes, greater than half that time was spent at the bedside reviewing the events leading thus far to his hospitalization, performing physical exam, and reviewing my plan of care. I have discussed this with my attending, Dr. Helen Thompson, she is in agreement with my plan. VIVIENNE WHYTE, CNC MANAGER [id number]/[facility] #: [id number] CRISTINA
[2019-09-03] MEDS ORDERED: Atenolol TAB* 25 MG PO SCH (21:00)
[2019-09-03] MEDS: Magnesium Hydroxide LIQ* 30 ML UDC PO SCH (22:10)
[2019-09-03] MEDS: Atorvastatin* 40 MG TAB PO SCH (22:10)
[2019-09-03] MEDS: Aspirin EC TAB* 81 MG TAB.EC PO SCH (22:11)
[2019-09-03] MEDS: Docusate CAP* 100 MG PO SCH (22:11)
[2019-09-03] MEDS: Betaxolol 0.5 %* OPHTH.SOLN 5 ML BOTH EYES SCH (22:17)
--- NOTE | 2019-09-03 23:52 | OP ---
CC: Dr. Murrell * DATE OF OPERATION: 09/03/19 - ROOM #341 DATE OF : 41 SURGEON: Christophe Gonzalez MD ASSISTANTS: 1. COSTA Campos, assistant city attorney. 2. Liborio Condon, second assist. ANESTHESIOLOGIST: Dr. Pippa Berg. ANESTHESIA: Left adductor canal block, left thigh and spinal and IV sedation. PRE-OP DIAGNOSIS: Severe arthritis of the left knee with varus malalignment. POST-OP DIAGNOSIS: Severe arthritis of the left knee with varus malalignment. OPERATIVE PROCEDURE: Left total knee replacement. COMPONENTS UTILIZED: Alyson Persona knee, all components were cemented to size 8 femur, a size 35 patella, and size G tibia, and a 10 articular surface. COMPLICATIONS: There were no complications. DRAINS: There were no drains. ESTIMATED BLOOD LOSS: 200 mL. REPLACEMENT: Crystalloid fluids. INDICATIONS: Severe arthritis of the knee with deformity. The arthritis has been no longer responsive to nonoperative care. DESCRIPTION OF PROCEDURE: The patient was brought to the operating room after having administered the block in the holding area. The spinal was administered in the room in the seated position. He was returned to the supine position. A Andrade catheter was inserted. The left lower extremity was wrapped with a proximal thigh tourniquet and the leg was prepped from the tourniquet to the tips of the toes. After prepping, draping, and carefully sealing off, we did our universal protocol time-out confirming Hernandez Cook and a plan for left knee replacement for severe left knee arthritis. We all agreed and we proceeded. Ancef was used for the perioperative prophylaxis and we did not use tranexamic acid. The leg was placed on a padded foot johnson and then surgery was done with the hip and knee acutely flexed and the foot on that padded piece. Skin incision went from 2 fingerbreadths proximal to the superior pole of the patella to the medial aspect of the tibial tubercle. Careful hemostasis was checked and achieved throughout the case utilizing electrocautery. This incision went down to the prepatellar bursa. The prepatellar bursa was traversed and the knee was entered medial parapatellar dividing the quad tendon 4 cm proximal to the superior pole of the patella in the rectus, in the quad tendon staying as close to vastus medialis muscle as possible. The knee had abundant clear gold synovial fluid. The patient had complete eburnation of the medial femoral condyle, medial tibial plateau with scooping out of the medial tibial plateau. There was a large cyst in the posterior medial tibial plateau that was 3 to 4 cm x 2 to 3 cm oblong and it was in the posterior side abutting against the posterior cortex. It was full of cystic fluid. Then I went down close to an inch. The cyst was completely curetted in the course of the case. The patella was made so that it could be everted. The anteromedial soft tissues on the tibia were elevated subperiosteally going around to the deep MCL and into the posterior medial corner of the knee. The remains of the medial meniscus were carefully excised. The knee had an extensive synovitis, a lot of the synovium was removed in the medial gutter and going superiorly, some in the lateral gutter. The osteophytes were removed form the intracondylar notch. The ACL and PCL were uplifted from their femoral origins. ACL was excised. The tibia was made so it could be subluxated further from under the femur and the PCL was carefully excised. The lateral meniscus was carefully excised with careful hemostasis at its periphery for the lateral geniculate. The distal anterior femur was exposed subperiosteally for referencing and measuring. Synovectomy was completed around the patellar. The proximal tibial cut was made first. Our goal here was to remove 1 mm or 2 on the medial side and 10 to 12 mm on the lateral side. Once this cut was complete, then the femoral intramedullary drill was utilized. The femoral canal was entered. The femoral canal was suctioned to discourage embolization then or later. The distal femoral cutting guide was applied on 1 with 6 degrees of valgus and this cut was completed. The extension gap was nice with a centimeter block. The femur was measured for an 8. Femoral cuts were completed for a size 8 anterior, posterior, and chamfering. We then finished removal of the posterior horn of the medial meniscus carefully preserving the MCL, the PCL, small osteophytes on the medial femoral condyle. Some release of the MCL was done with a large periosteal elevator going down the tibia medially. At this stage, we had nice ligamentous balance and 90 degrees of flexion with a 10 mm block. The femur was created with a unicondylar cutout. Femoral canal was cleaned x6 with saline , suctioned empty. Bone plug was inserted. Throughout the case, we preserved bone from drilling and reaming to bone graft the large cyst in the posteromedial tibial plateau. The femur was then completed for the size G and the knee was articulated and extended with a G tibia 10 articular surface and an 8 femur with full knee extension, stable ligaments of extension, and stable ligaments from 90 degrees of flexion. The patella was cut flat, a 35 was chosen , 3 drill holes were made. These were undercut and the lateral release was not necessary. The leg was then exsanguinated. The tourniquet elevated to 75. The knee was cleaned in extension with pulsed saline 2 L. The knee was then cleaned in flexion. All bony surfaces were cleaned with a pulse saline and then all surfaces were dried. Final curetting was done on the large cyst that was posterior to all of our tibial anchoring necessities. The bone graft was then inserted and it was packed hard. The cement was mixed and the components were cemented into position, patella, followed by tibia, followed by femur. Each was impacted, excess cement was removed and the knee was articulated and extended during the final hardening. During closure, we took care to remove excess cement along the joint lines. We irrigated several times with saline. The posteromedial and medial soft tissues and pericapsular tissues were infiltrated with Marcaine with epinephrine 30 mL. Some was left right in the joint after we did our saline irrigation and we checked posteriorly for retained cement bodies as well. The quad mechanism was closed with interrupted #1 Vicryl sutures in a [id number] fashion, same with the medial retinaculum and more distally we used 0 Vicryl. The bursa was closed with 0 Vicryl and the superficial subcu closed with 3-0 Vicryl. The skin was closed with dorothy. The skin was washed and dried and covered with Betadine soaked release. Sterile gauze, sterile Webril, Cryo therapy cuff, ABD pads, and then a 6-inch Juan Antonio bandage was loosely applied. The posterior tibia and dorsalis pedis pulses were 2+ at the end of the case. The knee was flexed and extended multiple times during closure to see if nothing was tethered and the flexion of the knee well past 125 degrees and full extension. Stable ligaments in extension, stable ligaments in 90 degrees of flexion. The patient was then returned to the recovery room in stable and satisfactory condition having tolerated the procedure very well. [id number]/[facility] #: [id number] CRISTINA
[2019-09-04] MEDS: Lactated Ringers 1000 ML Bag* 1,000 ML IV SCH ×2 (01:47→15:26)
[2019-09-04] MEDS: oxyCODONE TAB* 5 MG TAB PO PRN ×2 (06:12→20:46)
[2019-09-04] MEDS: Acetaminophen TAB* 325 MG PO SCH ×3 (06:13→22:07)
--- NOTE | 2019-09-04 06:46 | PN ---
Progress Note - Progress Note Date of Service: 09/04/19 Note: POD#1 VSStable. Awake, alert, breathing easily. His dressing is dry this AM. Labs are pending. We need to be careful with his Lovenox/Coumadin in the face of post op bleeding and blood loss. Left DP pulse is 2 plus. Plans: Check H/H and the above.
[2019-09-04 07:20] LABS: Hematocrit 36 % (42-52); Hemoglobin 12.8 g/dL (14.0-18.0); Mean Platelet Volume 8.1 fL (7.4-10.4); Platelet Count 156 10^3/uL (150-450)
[2019-09-04 07:22] LABS: INR 1.09 (0.82-1.09)
[2019-09-04 07:37] LABS: BUN/Creatinine Ratio 16.5 (8-20); Calcium 9.1 mg/dL (8.6-10.3); EGFR African American 98.3 (>60); EGFR Non-African American 81.2 (>60); Potassium 4.1 mmol/L (3.5-5.0)
[2019-09-04] MEDS: Ondansetron INJ* 2 MG/ML VIAL IV PRN (08:20)
[2019-09-04] MEDS ORDERED: NS 0.9% 50 ML* 50 ML ONE (08:34)
[2019-09-04] MEDS: ceFAZolin 1 GM ADVAN(*) 1 GM in NS 0.9% 50 ML* 50 ML IVPB SCH (08:40)
[2019-09-04] MEDS: Docusate CAP* 100 MG PO SCH ×3 (08:46→20:46)
[2019-09-04] MEDS: Vitamin THERAPEUTIC TAB PO SCH ×2 (08:46→09:06)
[2019-09-04] MEDS: Enoxaparin(*) 40 MG/0.4 ML SYR SUBCUT SCH ×2 (08:47→20:49)
[2019-09-04] MEDS: Betaxolol 0.5 %* OPHTH.SOLN 5 ML BOTH EYES SCH ×2 (08:48→20:50)
[2019-09-04] MEDS: Magnesium Hydroxide LIQ* 30 ML UDC PO SCH ×3 (08:48→20:47)
[2019-09-04] MEDS ORDERED: Enoxaparin(*) 40 MG/0.4 ML SYR SUBCUT SCH (09:00)
[2019-09-04] MEDS ORDERED: Enoxaparin(*) 40 MG/0.4 ML SYR SUBCUT ONE ×2 (09:00→12:00)
[2019-09-04] MEDS ORDERED: PROCHLORPERAZINE INJ 5 MG/ML 2 ML VIAL IV PRN (10:11)
[2019-09-04] MEDS ORDERED: traMADol TAB* 50 MG PO PRN (10:11)
--- NOTE | 2019-09-04 14:15 | PN ---
Subjective Date of Service: 09/04/19 Interval History: patient reports that he is feeling frustrated because he has had some bleeding for surgical site and nausea/ vomiting. Denies abd pain. Denies chest pain or shortness of breath. Denies fever or chills. Family History: Unchanged from Admission Social History: Unchanged from Admission Past Medical History: Unchanged from Admission Objective Active Medications: Acetaminophen (Tylenol Tab*) 975 mg PO Q8HR [facility] Last Admin: 09/04/19 06:13 Dose: 975 mg Albuterol (Ventolin Hfa Inhaler*) 2 puff INH Q4H PRN PRN Reason: wheeze Aspirin (Aspirin Ec Tab*) 81 mg PO BEDTIME [facility] Last Admin: 09/03/19 22:11 Dose: 81 mg Atenolol (Tenormin Tab*) 25 mg PO BEDTIME [facility] Atorvastatin Calcium (Lipitor*) 40 mg PO BEDTIME [facility] Last Admin: 09/03/19 22:10 Dose: 40 mg Betaxolol HCl (Betoptic 0.05%*) 1 drop BOTH EYES BID [facility] Last Admin: 09/04/19 08:48 Dose: 1 drop Bisacodyl (Dulcolax Supp*) 10 mg DE DAILY PRN PRN Reason: CONSTIPATION Brimonidine Tartrate (Alphagan 0.2%) 1 drop BOTH EYES BID [facility] Last Admin: 09/04/19 08:48 Dose: 1 drop Cyclobenzaprine HCl (Flexeril Tab*) 10 mg PO Q6H PRN PRN Reason: SPASMS Diphenhydramine HCl (Benadryl Iv*) 25 mg IV Q6H PRN PRN Reason: PRURITIS Diphenhydramine HCl (Benadryl Po*) 25 mg PO Q6H PRN PRN Reason: PRURITIS Docusate Sodium (Colace Cap*) 100 mg PO BID [facility] Last Admin: 09/04/19 09:08 Dose: Not Given Enoxaparin Sodium (Lovenox(*)) 100 mg SUBCUT Q12H [facility] Enoxaparin Sodium (Lovenox(*)) 40 mg SUBCUT BID [facility] Stop: 09/04/19 21:01 Last Admin: 09/04/19 08:47 Dose: 40 mg Lactated Ringer's (Lactated Ringers 1000 Ml Bag*) 1,000 mls @ 100 mls/hr IV PER RATE [facility] Last Admin: 09/04/19 01:47 Dose: 100 mls/hr Lactulose (Lactulose*) 30 ml PO BID PRN PRN Reason: CONSTIPATION Magnesium Hydroxide (Milk Of Magnesia Liq*) 30 ml PO BID [facility] Last Admin: 09/04/19 09:07 Dose: Not Given Magnesium Hydroxide (Milk Of Magnesia Liq*) 30 ml PO Q6H PRN PRN Reason: CONSTIPATION Morphine Sulfate (Morphine Inj (Syringe))*) 2 mg IV Q4H PRN PRN Reason: Pain - Unrelieved Last Admin: 09/03/19 20:14 Dose: 2 mg Multivitamins (Theragran Tab*) 1 tab PO DAILY [facility] Last Admin: 09/04/19 09:06 Dose: Not Given Non-Formulary Medication (Zinc Oxide [Desitin]) 1 gm TOPICAL ONCE PRN PRN Reason: ITCHING Ondansetron HCl (Zofran Inj*) 4 mg IV Q6H PRN PRN Reason: NAUSEA Last Admin: 09/04/19 08:20 Dose: 4 mg Ondansetron HCl (Zofran Odt Tab*) 4 mg PO Q6H PRN PRN Reason: NAUSEA Oxycodone HCl (Roxycodone Tab*) 5 mg PO Q4H PRN PRN Reason: PAIN - MODERATE Oxycodone HCl (Roxycodone Tab*) 10 mg PO Q4H PRN PRN Reason: PAIN - SEVERE Last Admin: 09/04/19 06:12 Dose: 10 mg Pantoprazole Sodium (Protonix Tab*) 40 mg PO AC PRN PRN Reason: ACID REFLUX Prochlorperazine Edisylate (Compazine Inj*) 5 mg IV Q6H PRN PRN Reason: NAUSEA/VOMITING Last Admin: 09/04/19 13:50 Dose: 5 mg Sodium Chloride (Sodium Chloride 0.65% Nasal [place]*) 2 spray BOTH NARES ONCE PRN PRN Reason: CONGESTION Tramadol HCl (Ultram*) 50 mg PO Q6H PRN PRN Reason: PAIN - MODERATE Vital Signs - 8 hr 09/04/19 09/04/19 09/04/19 06:12 07:38 08:22 Temperature 98.1 F Pulse Rate 57 79 Respiratory 18 15 Rate Blood Pressure 103/53 100/68 (mmHg) O2 Sat by Pulse 97 Oximetry 09/04/19 09/04/19 09/04/19 11:21 11:31 11:33 Temperature 98 F Pulse Rate 66 Respiratory 16 Rate Blood Pressure 138/66 (mmHg) O2 Sat by Pulse 97 99 Oximetry 09/04/19 11:34 Temperature Pulse Rate Respiratory 16 Rate Blood Pressure (mmHg) O2 Sat by Pulse Oximetry Oxygen Devices in Use Now: None Appearance: alert, sitting in the chair , no acute distress Eyes: No Scleral Icterus Ears/Nose/Mouth/Throat: Clear Oropharnyx, Mucous Membranes Moist Neck: NL Appearance and Movements; NL JVP, Trachea Midline Respiratory: Symmetrical Chest Expansion and Respiratory Effort, Clear to Auscultation Cardiovascular: NL Sounds; No Murmurs; No JVD, No Edema Abdominal: NL Sounds; No Tenderness; No Distention Extremities: No Clubbing, Cyanosis, - - , dressing to left knee Skin: No Rash or Ulcers, - - dresssing is dry intact to left knee Neurological: Alert and Oriented x 3 Nutrition: Taking PO's Result Diagrams: 09/04/19 06:37 09/04/19 06:37 Assess/Plan/Problems-Billing Assessment: Mr. Samuel is a 73 y.o male with pmhx of CAD, anxiety, sarcoidosis, gerd, pe/dvt who presented to [facility] for elective left total knee replacement. - Patient Problems (1) Status post total knee replacement Status: Acute Priority: High Onset Date: 12/22/15 Code(s): Z96.659 - PRESENCE OF UNSPECIFIED ARTIFICIAL KNEE JOINT SNOMED Code(s): 6272198248671 Comment: s/p left TKA - Managment per orthopedics -PT, bowel meds, and pain managment per orthopedics (2) CAD (coronary artery disease) Status: Acute Code(s): I25.10 - ATHSCL HEART DISEASE OF [place] CORONARY ARTERY W/O ANG PCTRS SNOMED Code(s): 43661207 Comment: Continue atenolol, statin (3) Glaucoma Status: Acute Code(s): H40.9 - UNSPECIFIED GLAUCOMA SNOMED Code(s): 74067811 Comment: Continue home eye drops. (4) History of pulmonary embolus (PE) Status: Chronic Code(s): Z86.711 - PERSONAL HISTORY OF PULMONARY EMBOLISM SNOMED Code(s): 657652296 Comment: History of PE/DVT on chronic warfarin therapy. Continue warfarin with lovenox bridge until INR is greater than 2 Monitor INR. (5) DVT prophylaxis Status: Acute Code(s): DZB0694 - SNOMED Code(s): 424422755 Comment: Continue Warfarin/ lovenox bridge per Ortho (6) Full code status Status: Acute Code(s): Z78.9 - OTHER SPECIFIED HEALTH STATUS SNOMED Code(s) : 326688852 Status and Disposition: inpatient - discharge per orthopedics
[2019-09-04] MEDS ORDERED: Warfarin TAB(*) 7.5 MG PO ONE (17:00)
[2019-09-04] MEDS: Atenolol TAB* 25 MG PO SCH (20:46)
[2019-09-04] MEDS: Aspirin EC TAB* 81 MG TAB.EC PO SCH (20:46)
[2019-09-04] MEDS: Atorvastatin* 40 MG TAB PO SCH (20:46)
[2019-09-05] MEDS: oxyCODONE TAB* 5 MG TAB PO PRN ×3 (04:27→22:12)
[2019-09-05] MEDS: Acetaminophen TAB* 325 MG PO SCH ×3 (06:07→22:11)
[2019-09-05 06:29] LABS: Hematocrit 33 % (42-52); Hemoglobin 11.6 g/dL (14.0-18.0); Mean Platelet Volume 8.3 fL (7.4-10.4); Platelet Count 136 10^3/uL (150-450)
[2019-09-05 06:36] LABS: INR 1.3 (0.82-1.09)
[2019-09-05 06:44] LABS: BUN/Creatinine Ratio 16.3 (8-20); Calcium 8.4 mg/dL (8.6-10.3); EGFR Non-African American 94.2 (>60); Potassium 4.4 mmol/L (3.5-5.0)
[2019-09-05] MEDS: Vitamin THERAPEUTIC TAB PO SCH (08:43)
[2019-09-05] MEDS: Enoxaparin(*) 100 MG/ML SYR SUBCUT SCH ×2 (08:43→20:50)
[2019-09-05] MEDS: Magnesium Hydroxide LIQ* 30 ML UDC PO SCH ×2 (08:43→20:49)
[2019-09-05] MEDS: Docusate CAP* 100 MG PO SCH ×2 (08:43→20:49)
--- NOTE | 2019-09-05 09:01 | PN ---
Progress Note - Progress Note Date of Service: 09/05/19 Note: POD#2 Temp 99.5 Hct 33% Feeling pain and sluggish. INR is 1.3, Continuing coumadin and increasing lovenox today for DVT/PE history.The left knee surgery is dry and has expected swelling, new dressing applied. He is advised that surgical region bleeding caused by the increased lovenox could be recognized by him as increased pain along with increased swelling and discoloration. Plans: Continue to mobilize and to [place] for his disposition
[2019-09-05] MEDS: Betaxolol 0.5 %* OPHTH.SOLN 5 ML BOTH EYES SCH ×2 (10:30→20:50)
--- NOTE | 2019-09-05 11:42 | PN ---
Progress Note - Progress Note Date of Service: 09/05/19 Note: Pt seen and examined at bedside. He feels well today without complaints, hypotension resolved. Knee dressing was changed by Dr Gonzalez. It remains CDI, NVI distally. Calves supple and nontender. Today he will resume full strength lovenox for bridging, he knows to watch for increasing knee swelling/pain to indicate bleeding at this site. He will take 10 mg warfarin today and likely tomorrow as well, but tomorrows dose tbd by INR. He will need INR and H&H monitored tomorrow. He has a bed at [facility] tomorrow.
[2019-09-05] MEDS ORDERED: Hemorrhoidal OINT PR PRN (15:40)
[2019-09-05] MEDS ORDERED: Witch Hazel PAD* JAR TOPICAL PRN (15:42)
[2019-09-05] MEDS ORDERED: Warfarin TAB(*) 10 MG PO ONE (17:00)
[2019-09-05] MEDS: Aspirin EC TAB* 81 MG TAB.EC PO SCH (20:49)
[2019-09-05] MEDS: Atorvastatin* 40 MG TAB PO SCH (20:49)
[2019-09-05] MEDS: Atenolol TAB* 25 MG PO SCH (20:49)
[2019-09-06] MEDS: Acetaminophen TAB* 325 MG PO SCH (05:33)
[2019-09-06 05:45] LABS: Hematocrit 32 % (42-52); Hemoglobin 11.3 g/dL (14.0-18.0); Mean Platelet Volume 7.8 fL (7.4-10.4); Platelet Count 151 10^3/uL (150-450)
[2019-09-06 05:51] LABS: INR 1.3 (0.82-1.09)
[2019-09-06] MEDS: Betaxolol 0.5 %* OPHTH.SOLN 5 ML BOTH EYES SCH (08:37)
[2019-09-06] MEDS: Vitamin THERAPEUTIC TAB PO SCH (08:38)
[2019-09-06] MEDS: Enoxaparin(*) 100 MG/ML SYR SUBCUT SCH (08:38)
[2019-09-06] MEDS: Magnesium Hydroxide LIQ* 30 ML UDC PO SCH (08:39)
[2019-09-06] MEDS: Docusate CAP* 100 MG PO SCH (08:39)
[2019-09-06] MEDS: oxyCODONE TAB* 5 MG TAB PO PRN (08:43)
--- NOTE | 2019-09-06 08:49 | DS ---
Orthopedic Discharge Summary - Discharge Summary Date of Admission:09/03/19 Date of Discharge: 09/06/2019 Date of Surgery: 09/03/2019 Attending Orthopedic Provider: Dr. Gonzalez Pre-operative Diagnosis: Left knee osteoarthritis Operative Procedure: Left total knee replacement Disposition of Patient: [facility] Home care vs Outpatient services: NA Condition of Patient: Good Pain medication RX at discharge: Tramadol 50mg DVT prophylaxis RX at discharge: Lovenox and Coumadin History: WILEY GALLOWAY is a 73 year old M with years of increasingly severe left knee pain. Patient has failed conservative management and has elected to undergo a left total knee replacement Hospital Course: WILEY was admitted to [facility] on 09/03/19. Patient underwent a left total knee replacement without complication followed by a brief recovery in PACU and transfer to the Short Stay Surgical Unit in stable condition. Our hospitalist service, physical therapy and occupational therapy also participated in this patients care. Post-op day 1: patient was alert and in no acute distress. Dressing was clean, dry and intact. Operative extremity dorsiflexion and plantarflexion intact, sensation intact to light touch distally, DP2+. Post-op day two: dressing was changed, incision was clean , dry and intact. POD 3 the pt states that his pain is much improved. His dressing was changed again today. Incision was clean and intact. Trace bleeding present in the center of the incision. Patient was deemed to be medically and orthopedically stable for discharge. Physical therapy goals were met. Home Medications Medication Instructions Recorded Confirmed Type Brimonidine 0.2 % * [Alphagan P 1 drop BOTH EYES BID 02/14/14 09/03/19 History 0.2% *] Aspirin EC TAB* [Ecotrin EC Low 81 mg PO BEDTIME #0 12/22/15 09/03/19 History Dose 81 MG*] Atorvastatin* [Lipitor 40 MG*] 40 mg PO BEDTIME #0 12/22/15 09/03/19 History Warfarin TAB(*) [Coumadin TAB(*)] 7.5 mg PO DAILY PRN #0 12/25/15 09/03/19 Rx Warfarin TAB(*) [Coumadin TAB(*)] 10 mg PO DAILY PRN #0 12/25/15 09/03/19 Rx Atenolol TAB* [Tenormin TAB* 25 MG] 25 mg PO BEDTIME 01/23/16 09/03/19 History Albuterol HFA INHALER* [Ventolin 2 puff INH Q4H PRN #1 mdi 07/18/19 09/03/19 Rx HFA Inhaler*] Betaxolol 0.5 %* [Betoptic 0.5%*] 1 drop BOTH EYES BID 07/18/19 09/03/19 History Inhaler, Assist Devices 1 each PO Q4HR #1 spacer 07/18/19 09/03/19 Rx [Aerochamber Mv] Sodium Chloride [Saline Nasal 2 drop BOTH NARES ONCE PRN 08/21/19 09/03/19 History [place]] Zinc Oxide [Desitin] 1 gm TOPICAL ONCE PRN 08/21/19 09/03/19 History Acetaminophen 1 - 2 tab PO BID PRN 09/03/19 09/03/19 History Prevacid 15 mg PO AC PRN 09/03/19 09/03/19 History Acetaminophen TAB* [Tylenol TAB*] 975 mg PO Q8HR tab 09/05/19 Rx Docusate CAP* [Colace Cap*] 100 mg PO BID #60 cap 09/05/19 Rx Enoxaparin(*) [Lovenox(*)] 100 mg SUBCUT Q12H syringe 09/05/19 Rx traMADol TAB* [Ultram*] 50 mg PO Q6H PRN #0 tab MDD 8 09/05/19 Rx Discharge Instructions following Orthopedic Surgery: Activity: * Weight Bearing as tolerated * Continue physical therapy and occupational therapy exercises as shown while at rehab Wound care: * OK to shower on post-op day 3, no bathing, swimming, or submerging wound. * Use gentle soap, pat dry. Cover with gauze, JIHAN wrap or tape. * Nursing will perform wound checks. Call Orthopedic office for: * Increased drainage * Redness * Increased pain * Fever Go to ER with shortness of breath or chest pain. Diet: * Regular diet * Increase fluids and fiber to prevent constipation. * Continue to use stool softeners, call office if no bowel motion within 48 hours. Medications See Home Medication List in your packet for medications that you should take after discharge. DVT Prophylaxis: Lovenox Dosing: [100] mg subcutaneous injection twice a day until INR is between 2-3 then discontinue Coumadin home dosing with 7.5 or 10 mg daily per your normal dosing instruction. This can be adjusted as needed by orthopedics or your local company truck driver during your 30 days post op. For 30 days post op you need INRs on mondays and , more often as needed. Please recheck INR daily until INR is therapeutic. Dosing is as such: Tonight 10mg 09/07/2019: 10mg 09/08/2019: 8mg Redraw on Monday. Please contact orthopedics with increased knee pain/ any obvious bleeding. Pain Control: Tramadol 50 mg tabs: take 1 tab for moderate pain and 2 tabs for every pain every 6 hours as needed. Max 8 per day. Hold for sedation, wean off as soon as pain allows. Antibiotics are required prior to any dental work. FOLLOW UP: Follow up with [Lisa] Within [1 month] sooner with concerns, call for appointment Please call our office with any questions or concerns ([phone]) No RX needed, going to [facility]
[2019-09-06 11:14] VITALS: BP 106/58
== END 2019-09-06 12:30 | DRG 470 ==
LOC: AA 05:38 → SSU 10:56
PROVIDERS: ADMIT Orthopaedic Surgery; ATTEND Orthopaedic Surgery
PROC: 0SRD0J9 Replacement of Left Knee Joint with Synthetic Substitute, Cemented, Open Approach (ICD-10-PCS; principal; 2019-09-03 07:30)
DX: M17.12 Unilateral primary osteoarthritis, left knee (principal); M96.830 Postprocedural hemorrhage of a musculoskeletal structure following a musculoskeletal system procedure; D86.9 Sarcoidosis, unspecified; G47.33 Obstructive sleep apnea (adult) (pediatric); H40.9 Unspecified glaucoma; I87.2 Venous insufficiency (chronic) (peripheral); Z96.651 Presence of right artificial knee joint; N40.0 Benign prostatic hyperplasia without lower urinary tract symptoms; K21.9 Gastro-esophageal reflux disease without esophagitis; I25.10 Atherosclerotic heart disease of native coronary artery without angina pectoris; E78.2 Mixed hyperlipidemia; I77.810 Thoracic aortic ectasia; I95.9 Hypotension, unspecified; R11.2 Nausea with vomiting, unspecified; Y83.8 Other surgical procedures as the cause of abnormal reaction of the patient, or of later complication, without mention of misadventure at the time of the procedure; Y92.239 Unspecified place in hospital as the place of occurrence of the external cause; F41.9 Anxiety disorder, unspecified; F32.9 Major depressive disorder, single episode, unspecified; M21.162 Varus deformity, not elsewhere classified, left knee; M25.762 Osteophyte, left knee; Z87.891 Personal history of nicotine dependence; Z79.899 Other long term (current) drug therapy; Z79.82 Long term (current) use of aspirin; Z95.0 Presence of cardiac pacemaker; Z86.711 Personal history of pulmonary embolism; Z86.718 Personal history of other venous thrombosis and embolism; Z88.1 Allergy status to other antibiotic agents; Z88.2 Allergy status to sulfonamides; Z88.8 Allergy status to other drugs, medicaments and biological substances
CPT/HCPCS: 36415; 80048; 85014; 85018; 85049; 85610; 88305; 88311; A9270-GY; C1776; J0690; J0780; J1170; J1650; J1885; J2250; J2270; J2405; J2704; J2795